=== PATIENT | female | born 1950 | race Caucasian/White ===

== ENCOUNTER 2018-09-23 10:23 | Inpatient (IN) ==
--- NOTE | 2018-09-23 11:04 | Diag Imaging Result Doc PS360 ---
CHEST-2 VIEWS - 09/23/2018 INDICATION: sob copd COMPARISON: 08/26/2018 FINDINGS: The lungs are normally expanded and clear. Heart size and mediastinal contours are normal. No pneumothorax or pleural effusion. IMPRESSION: Negative exam. Electronically signed by Jonnathan Chávez 09/23/2018 11:01 AM
[2018-09-23 11:17] LABS: BASO# 0.01 X1000 (0.0-0.2); BASO% 0.1 % (0.0-0.8); EOS# 0.14 X1000 (0.0-0.7); EOS% 1.3 % (0.0-10.0); HEMOGLOBIN 14.8 g/dL (12.0-16.0); IMM GRAN# 0.02 X1000 (0.0-0.04); IMM GRAN% 0.2 % (0.0-0.5); LYMPH# 1.81 X1000 (1.2-3.4); LYMPH% 16.4 % (20.5-51.1); MCH 29.5 PG (27-31); MCHC 31.5 g/dL (33-37); MCV 93.6 FL (81-99); MONO# 0.78 X1000 (0.11-0.59); MONO% 7.1 % (1.7-9.3); MPV 11.5 FL (7.4-10.4); NEUT# 8.27 X1000 (1.4-6.5); NEUT% 74.9 % (42.2-75.2); PLT 190 X1000 (130-400); RBC 5.02 XMIL (4.2-5.4); RDW 12.1 % (11.5-14.5); WBC 11.03 X1000 (4.8-10.8)
[2018-09-23] MEDS ORDERED: DUONEB (A & A) INH ONE ×2 (11:19→15:39)
[2018-09-23] MEDS ORDERED: MAGNESIUM SULFATE 1 GM/D5W 1 GM/100 ML IVPB IV ONE (11:20)
[2018-09-23] MEDS ORDERED: SOLU-MEDROL IV ONE (11:20)
[2018-09-23] MEDS ORDERED: LASIX IV ONE (11:21)
[2018-09-23 11:42] LABS: ALBUMIN 3.8 g/dL (3.5-5.0); CALCIUM 9.1 mg/dL (8.8-10.2); POTASSIUM 4.2 mmol/L (3.5-5.1); TOTAL BILIRUBIN 0.2 mg/dL (0.20-1.00); TOTAL PROTEIN 6.8 g/dL (6.3-8.3)
[2018-09-23 11:48] LABS: BILIRUBIN URINE NEGATIVE (NEGATIVE); BLOOD URINE NEGATIVE (NEGATIVE); CLARITY CLEAR (CLEAR); COLOR YELLOW; GLUCOSE URINE NEGATIVE (NEGATIVE); KETONE URINE NEGATIVE (NEGATIVE); LEUKOCYTES URINE NEGATIVE (NEGATIVE); NITRITE URINE NEGATIVE (NEGATIVE); PROTEIN URINE TRACE mg/dL (NEGATIVE); SP GRAVITY URINE 1.005; UROBILINOGEN URINE NORMAL
[2018-09-23 11:50] LABS: URINE EPITHELIAL CELLS <10 /HPF (<10); URINE RBC <10 /HPF (<10); URINE SOURCE CLEAN CATCH
--- NOTE | 2018-09-23 13:36 | Diag Imaging Result Doc PS360 ---
CT ANGIOGRM PULMONARY ARTERIES - 09/23/2018 INDICATION: dyspnea elevated ddimer TECHNIQUE: Axial CT images were obtained after administering intravenous contrast. Coronal MIP images were generated. COMPARISON: None FINDINGS: There is no pulmonary embolism. Heart size is normal with no pericardial effusion. There is moderately advanced, triple-vessel calcified coronary artery disease. No mass or adenopathy. 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 No masses in the upper abdomen. There is mild dependent atelectasis. No infiltrates in the lungs otherwise. There are moderate degenerative changes of the spine. No acute or suspicious bony lesion. IMPRESSION: No acute disease. This exam was performed using automated exposure control, adjustment of mA or kV according to patient size, and/or use of iterative reconstruction technique Electronically signed by Jonnathan Chávez 09/23/2018 1:34 PM
--- NOTE | 2018-09-23 14:15 | PROVIDER DOCUMENTATION ---
This chart was entered by Lyssa Worthy Scribe, acting as scribe for Hetal Valencia MD. HPI-Respiratory General - General Chief Complaint: Shortness of Breath Stated Complaint: SOB Time Seen by Provider: 09/23/18 10:39 Source: patient Allergies/Adverse Reactions: Patient Allergies Allergy/AdvReac Type Severity Reaction Status Date / Time doxycycline Allergy RASH Verified 03/14/18 05:56 latex Allergy RASH Verified 03/14/18 05:56 oxycodone HCl * Allergy ITCHING Verified 03/14/18 05:56 [From OxyContin] Sulfa (Sulfonamide Allergy RASH Verified 03/14/18 05:56 Antibiotics) naproxen [From Naprosyn] AdvReac NAUSEA/VOMI Verified 03/14/18 05:56 TING Home Medications: Home Medication List Medication Instructions Recorded Confirmed Last Taken Type Furosemide [Lasix] 40 mg PO DAILY PRN 04/26/15 03/14/18 2 Weeks Ago History ~02/28/18 Hydrocodone/APAP 10 mg/325 mg 1 each PO 4X04/26/15 03/14/18 03/14/18 03:00 History [Marydel-10] Omeprazole [Prilosec] 20 mg PO DAILY@0700 04/26/15 03/11/18 03/13/18 09:00 History Potassium Chloride 20 meq PO DAILY PRN PRN 04/26/15 03/14/18 1 Month Ago History ~02/12/18 Pregabalin [Lyrica] 175 mg PO BID 04/26/15 03/11/18 03/13/18 09:00 History ROSUVAstatin [Crestor] 10 mg PO QHS 04/26/15 03/14/18 03/12/18 21:00 History Acetaminophen [Tylenol] 1,000 mg PO Q4H PRN PRN 05/03/16 03/14/18 1 Month Ago History ~02/12/18 Albuterol Sulfate [Proair Hfa] 8.5 gm IH PRN PRN 05/03/16 03/14/18 03/13/18 21: 00 History Aspirin [Ecotrin] 325 mg PO DAILY 05/03/16 03/14/18 03/11/18 History Glimepiride [Amaryl] 2 mg PO DAILY 0803/11/18 03/13/18 09:00 History Hydromorphone [Dilaudid 1 mg/1 ml 0 mg .SEE ORDER DAILY 05/03/16 03/14/18 History syringe] Phentermine HCl [Adipex-P] 1 - 2 tab PO DAILY 05/03/16 03/11/18 03/13/18 09:00 History Sitagliptin Phos/Metformin HCl 1 each PO BID 05/03/16 03/11/18 03/13/18 09:00 History [Janumet 50-1,000 mg Tablet] Duloxetine [Cymbalta] 30 mg PO BID 03/11/18 03/11/18 03/13/18 09:00 History Furosemide [Lasix] 20 mg PO BID #60 tab 08/26/18 Unknown Rx Levofloxacin [Levaquin] 500 mg PO DAILY #7 tab 08/26/18 Unknown Rx - History of Present Illness-Resp Nature of Presenting Problem: Patient is a 67 year old female who presents to the ED via EMS with shortness of breath. Patient states she was seen in the ED last week for similar symptoms. Patient states history of COPD and CHF. Patient does not report chest pain. Patient denies using her inhaler. Patient states she is on 2 L of oxygen 01/04. Quality of Pain: reports: tightness Severity in ED: reports: mild Onset/Duration: reports: gradual Timing: reports: still present, getting worse Cough Quality/Degree: reports: no cough Current Respiratory Medication Therapy: Initiated see nurses note Modifying Factors: improves with: nothing Associated Symptoms: reports: shortness of breath Similar Symptoms Previously?: Yes Recently seen or treated by another doctor?: Yes Review of Systems - Adult - REVIEW OF SYSTEMS - ADULT Constitutional: reports: no symptoms reported Eyes: reports: no symptoms reported Ears, Nose, Mouth & Throat: reports: no symptoms reported Cardiovascular: reports: no symptoms reported Respiratory: reports: shortness of breath. denies: cough, wheezing Gastrointestinal: reports: no symptoms reported Genitourinary: reports: no symptoms reported Musculoskeletal: reports: no symptoms reported Integumentary: reports: no symptoms reported Neurological: reports: no symptoms reported Psychiatric: reports: no symptoms reported Endocrine: reports: no symptoms reported Hematologic/Lymphatic: reports: no symptoms reported Allergic/Immunologic: reports: no symptoms reported All Other Systems: Reviewed and Negative Past History - Adult - PAST MEDICAL HISTORY-ADULT Review of Records: reports: Nursing Assessment Review, Medications Reviewed, Social history reviewed & non-contributory. Major Childhood Illnesses: reports: denies history Cardiovascular: reports: CHF, HTN Respiratory: reports: asthma, COPD, sleep apnea Gastrointestinal: reports: denies history Obstetrical/Gynecological: reports: denies history Genitourinary: reports: denies history Musculoskeletal: reports: denies history Neurological: reports: denies history Psychiatric: reports: denies history Endocrine/Immune: reports: Diabetes Other Conditions: reports: cataract/glaucoma - PRIOR SURGERIES/PROCEDURES Surgical/Procedure History: reports: hysterectomy, other (toe) - IMMUNIZATION STATUS Childhood Immunizations: See Nurse Assessment Flu Vaccine: See Nurse Assessment - FAMILY HISTORY Family History: reviewed, not pertinent - SOCIAL HISTORY Smoking: cigarettes (former) Substance Use: denies Physical Exam-General - PHYSICAL EXAM-ADULT Initial Vital Signs Reviewed: Yes - CONSTITUTIONAL General Appearance: appears well, alert, no apparent distress - EYES Eyes: PERRL/EOMI, pink conjunctivae - HEAD, EARS, NOSE, MOUTH & THROAT HENMT: normocephalic/atraumatic, moist mucous membranes - NECK Neck: supple - RESPIRATORY Respiratory: chest non-tender, no pleuratic chest pain, no respiratory distress , no accessory muscle use (mild diffuse wheezing with mild decreased breath sounds) - CARDIOVASCULAR Cardiovascular: normal peripheral pulses, regular rate, rhythm, other ( bilateral chronic pitting edema with redness from superior to ankle to half way up lower leg, pt says this is normal for her x 5 years, LLE lateral/anterior aspect half dollar sized and oval superficial wound healing well, no discharge, less than 2 sec cap refill of lower foot) - GASTROINTESTINAL (ABDOMEN) Abdominal Exam: non tender, soft - LYMPHATIC Lymphatic: no adenopathy - MUSCULOSKELETAL Back Exam: normal inspection Peripheral Pulses: radial (R): 2+, radial (L): 2+ - SKIN Integumentary: warm/dry, other (see extremity note) - NEUROLOGIC Neurologic: branch manager trainee II-XII nml as tested, grossly normal, no motor/sensory deficits - PSYCHIATRIC Psych/Mental Status: normal mood/affect, normal thought content, normal thought process, oriented x 3 Progress - PLAN OF CARE/RESULTS Progress/Plan/Lab Results: Vital Signs - 8 hr 09/23/18 10:26 09/23/18 11:48 09/23/18 11:52 Temperature 97.0 F L Pulse Rate 91 H 79 83 Respiratory Rate 25 H 17 17 Blood Pressure 153/86 158/89 O2 Sat by Pulse Oximetry 97 100 09/23/18 12:45 09/23/18 13:44 Temperature Pulse Rate 82 89 Respiratory Rate 12 15 Blood Pressure 128/69 123/68 O2 Sat by Pulse Oximetry 96 97 Laboratory Results - last 24 hr 09/23/18 09/23/18 09/23/18 10:35 11:03 11:03 WBC 11.03 H RBC 5.02 Hgb 14.8 Hct 47.0 MCV 93.6 MCH 29.5 MCHC 31.5 L RDW Std Deviation 12.1 Plt Count 190 MPV 11.5 H Immature Gran % (Auto) 0.2 Neut % (Auto) 74.9 Lymph % (Auto) 16.4 L [place] % (Auto) 7.1 Eos % (Auto) 1.3 Baso % (Auto) 0.1 Immature Gran # (Auto) 0.02 Neut # (Auto) 8.27 H Lymph # (Auto) 1.81 [place] # (Auto) 0.78 H Eos # (Auto) 0.14 Baso # (Auto) 0.01 D-Dimer, Quantitative Sodium Potassium Chloride Carbon Dioxide Anion Gap BUN Creatinine Estimated GFR/1.73 m2 BUN/Creatinine Ratio Glucose Calculated Osmolality Calcium Total Bilirubin AST ALT Alkaline Phosphatase Creatine Kinase Troponin T < 0.010 Ykr-U-Knnuoshdsme Pept Total Protein Albumin Globulin Albumin/Globulin Ratio Urine Source CLEAN CATCH Urine Color YELLOW Urine Clarity CLEAR Urine pH 7.0 Ur Specific [place] 1.005 Urine Protein TRACE A Urine Ketones NEGATIVE Urine Blood NEGATIVE Urine Nitrite NEGATIVE Urine Bilirubin NEGATIVE Urine Urobilinogen NORMAL Urine Microscopic RBC <10 Urine WBC NEGATIVE Ur Epithelial Cells <10 Urine Glucose NEGATIVE 09/23/18 09/23/18 09/23/18 11:03 11:03 11:03 WBC RBC Hgb Hct MCV MCH MCHC RDW Std Deviation Plt Count MPV Immature Gran % (Auto) Neut % (Auto) Lymph % (Auto) [place] % (Auto) Eos % (Auto) Baso % (Auto) Immature Gran # (Auto) Neut # (Auto) Lymph # (Auto) [place] # (Auto) Eos # (Auto) Baso # (Auto) D-Dimer, Quantitative 1.18 H Sodium 143 Potassium 4.2 Chloride 97 L Carbon Dioxide 34 Anion Gap 11 BUN 21 Creatinine 1.0 H Estimated GFR/1.73 m2 56 BUN/Creatinine Ratio 21 Glucose 172 H Calculated Osmolality 292 Calcium 9.1 Total Bilirubin 0.20 AST 12 ALT 9 L Alkaline Phosphatase 69 Creatine Kinase 57 Troponin T Tlt-B-Negzpyfozlr Pept Total Protein 6.8 Albumin 3.8 Globulin 3.0 Albumin/Globulin Ratio 1.0 Urine Source Urine Color Urine Clarity Urine pH Ur Specific [place] Urine Protein Urine Ketones Urine Blood Urine Nitrite Urine Bilirubin Urine Urobilinogen Urine Microscopic RBC Urine WBC Ur Epithelial Cells Urine Glucose 09/23/18 11:03 WBC RBC Hgb Hct MCV MCH MCHC RDW Std Deviation Plt Count MPV Immature Gran % (Auto) Neut % (Auto) Lymph % (Auto) [place] % (Auto) Eos % (Auto) Baso % (Auto) Immature Gran # (Auto) Neut # (Auto) Lymph # (Auto) [place] # (Auto) Eos # (Auto) Baso # (Auto) D-Dimer, Quantitative Sodium Potassium Chloride Carbon Dioxide Anion Gap BUN Creatinine Estimated GFR/1.73 m2 BUN/Creatinine Ratio Glucose Calculated Osmolality Calcium Total Bilirubin AST ALT Alkaline Phosphatase Creatine Kinase Troponin T Wqo-O-Opfnfyyyort Pept 377 H Total Protein Albumin Globulin Albumin/Globulin Ratio Urine Source Urine Color Urine Clarity Urine pH Ur Specific [place] Urine Protein Urine Ketones Urine Blood Urine Nitrite Urine Bilirubin Urine Urobilinogen Urine Microscopic RBC Urine WBC Ur Epithelial Cells Urine Glucose Orders Category Date Time Status Cardiac Monitoring DIRECTED Care 09/23/18 10:34 Active Nursing- Obtain EKG once Care 09/23/18 10:34 Active Oxygen Therapy- ED Nursing DIRECTED Care 09/23/18 10:35 Active CHEST-2 VIEWS [RAD] Stat Exams 09/23/18 10:34 Completed CTA [CT ANGIOGRM PULMONARY ARTERIES] [CT] Stat Exams 09/23/18 12:21 Completed CBC WITH DIFF [HEME] Stat Lab 09/23/18 11:03 Completed CK PROFILE [SP CHEM] Stat Lab 09/23/18 11:03 Completed CMP [COMPREHENSIVE METABOLIC PANEL] [CHEM] Stat Lab 09/23/18 11:03 Completed D-DIMER [COAG] Stat Lab 09/23/18 11:03 Completed PRO B-NATRIURETIC PEPTIDE Stat Lab 09/23/18 11:03 Completed TROPONIN T Stat Lab 09/23/18 11:[address] W/POSS RFLX CULT [URINALYSIS] Stat Lab 09/23/18 10:35 Completed Albuterol 2.5MG/Ipratrop 0.5MG [Duoneb (A & A)] Med 09/23/18 11:19 Discontinued 3 ml INH NOW ONE Furosemide [Lasix] Med 09/23/18 11:21 Discontinued 20 mg IV NOW ONE Magnesium Sulfate 1 gm/D5w Med 09/23/18 11:20 Discontinued 1 gm in 100 ml IV NOW Methylprednisolone Sod Succ [Solu-Medrol] Med 09/23/18 11:20 Discontinued 80 mg IV NOW ONE Aerosol Treatments Routine Oth 09/23/18 11:19 Completed Aerosol Treatments Stat Oth 09/23/18 11:19 Completed EKG [EKG] Stat Ther 09/23/18 10:34 Ordered pt told she had CHF last visit to ED - sent home, already has DM, COPD O2 2 L BNC 01/04 at home, did take her pills this am, no breathing treatment this am, not working to breath at this time, but wheezing and tight on exam, will treat with duoneb, solumedrol and magnesium despite the lasix previously, the creatinine is only 0.1 above normal, ddimer is double, will review past records and order CTA chest if necessary, BNP is 377 which decreases the likelihood of chf influence today, suspect more COPD at this time CT neg for PE and pulmonary edema, COPD the cause today of dyspnea, after hour long, still wheezing, will admit, call out to hospitalist d/w Dr Romano [facility] [place] [place] condition results treatment, return visit, why needs admit , agreed to admit Result Diagrams: 09/23/18 11:03 09/23/18 11:03 - EKG 1 Time of EKG reading by physician:: 11:12 EKG Read and Signed by:: Hetal Valencia EKG Interpretation (*Must complete 3 of following elements*): Abnormal ( anterior infarct, age undetermined) Rate: 81 Rhythm: normal sinus rhythm Comments: minimal voltage criteria for LVH, may be normal variant - XRAY 1 XRAY Study: Chest Impression: See EMR Report (CHEST-2 VIEWS - 09/23/2018 INDICATION: sob copd COMPARISON: 08/26/2018 FINDINGS: The lungs are normally expanded and clear. Heart size and mediastinal contours are normal. No pneumothorax or pleural effusion. IMPRESSION: Negative exam. Electronically signed by Jonnathan Chávez 09/23/2018 11:01 AM 09/23/18 1101 Interpreting Physician: Jonnathan Chávez MD Dictated Date/Time: 09/23/18 1101 cc: Hetal Valencia MD;) - CT/MRI 1 CT Study: Angiogram Impression: See EMR Report ( CT ANGIOGRM PULMONARY ARTERIES - 09/23/2018 INDICATION: dyspnea elevated ddimer TECHNIQUE: Axial CT images were obtained after administering intravenous contrast. Coronal MIP images were generated. COMPARISON: None FINDINGS: There is no pulmonary embolism. Heart size is normal with no pericardial effusion. There is moderately advanced, triple- vessel calcified coronary artery disease. No mass or adenopathy. 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 No masses in the upper abdomen. There is mild dependent atelectasis. No infiltrates in the lungs otherwise. There are moderate degenerative changes of the spine. No acute or suspicious bony lesion. IMPRESSION: No acute disease. This exam was performed using automated exposure control, adjustment of mA or kV according to patient size, and/or use of iterative reconstruction technique Electronically signed by Jonnathan Chávez 09/23/2018 1:34 PM 09/23/18 1334 Interpreting Physician: Jonnathan Chávez MD Dictated Date/Time: 09/23/18 1333 cc: Hetal Valencia MD; None,PCP) Departure - Departure Date of Disposition Decision: 09/23/18 Time of Disposition Decision: 14:13 DIAGNOSIS: COPD (chronic obstructive pulmonary disease), COPD exacerbation Disposition: ADMITTED INPATIENT 09 Certified Medical Emergency: Emergent Condition: Stable Referrals and Follow-Ups: None,PCP [Primary Care Provider] - Blayne Romano MD [ACTIVE STAFF PHYSICIAN] - - Critical Care Note This patient required my direct & personal management of CC.: No Attestation - Physician/ YASH Attestation The physician spent face to face time with patient:: Yes Advanced Practice Provider documentation review:: Supervising physician onsite and consulted in the evaluation and care of this patient. The physician did have a face to face encounter with the patient. This chart was documented by the indicated scribe, (Deacon,Lyssa, Scribe) and accurately reflects the services I performed and decisions made by me, Hetal Valencia MD, as attested by the provider's signature.
--- NOTE | 2018-09-23 17:12 | EKG Report ---
Test Performed on : 09/23/2018 11:12:05 AM Test Reason : sob copd Blood Pressure : / mmHG Vent. Rate : 081 BPM Atrial Rate : 081 BPM P-R Int : 158 ms QRS Dur : 084 ms QT Int : 394 ms P-R-T Axes : 068 001 043 degrees QTc Int : 457 ms Normal sinus rhythm. Minimal voltage criteria for LVH, may be normal variant Anterior infarct (cited on or before 11-MAR-2018) Abnormal ECG When compared with ECG of 11-MAR-2018 13:28, No significant change was found Unconfirmed Result
[2018-09-23] MEDS ORDERED: DUONEB (A & A) INH PRN (17:16)
[2018-09-23] MEDS ORDERED: ZOFRAN IV PRN (17:16)
[2018-09-23] MEDS ORDERED: SALINE LOCK IV FLUID XX ONE (17:16)
[2018-09-23] MEDS ORDERED: TYLENOL PO PRN (19:18)
[2018-09-23] MEDS: LOVENOX SUBQ SCH (19:49)
[2018-09-23 22:57] LABS: BILIRUBIN URINE NEGATIVE (NEGATIVE); BLOOD URINE TRACE (NEGATIVE); CLARITY CLEAR (CLEAR); COLOR YELLOW; KETONE URINE NEGATIVE (NEGATIVE); LEUKOCYTES URINE TRACE (NEGATIVE); NITRITE URINE NEGATIVE (NEGATIVE); PROTEIN URINE 2+(100 mg/dL) mg/dL (NEGATIVE); SP GRAVITY URINE 1.015; UROBILINOGEN URINE NORMAL
[2018-09-23 23:00] LABS: URINE BACTERIA 3+ /HFP; URINE EPITHELIAL CELLS <10 /HPF (<10); URINE RBC <10 /HPF (<10); URINE WBC <10 /HPF (<10)
[2018-09-23 23:01] LABS: URINE SOURCE CLEAN CATCH
[2018-09-23] MEDS: SOLU-MEDROL IV SCH (23:05)
[2018-09-23] MEDS: CYMBALTA PO SCH (23:05)
[2018-09-23] MEDS: GLUCOPHAGE PO SCH (23:06)
[2018-09-23] MEDS: HUMULIN R (PARKWAY) SUBQ SCH (23:06)
[2018-09-23] MEDS: JANUVIA PO SCH (23:06)
[2018-09-23] MEDS: LASIX PO SCH (23:06)
[2018-09-23] MEDS: CRESTOR PO SCH (23:08)
[2018-09-23] MEDS: NORCO-10 PO PRN (23:08)
[2018-09-24] MEDS: DUONEB (A & A) INH SCH ×5 (03:49→21:00)
[2018-09-24] MEDS: SOLU-MEDROL IV SCH ×3 (04:57→21:48)
[2018-09-24] MEDS: HUMULIN R (PARKWAY) SUBQ SCH ×4 (06:16→21:46)
[2018-09-24] MEDS: PROTONIX PO SCH (06:16)
[2018-09-24] MEDS ORDERED: PRILOSEC PO PRN (07:00)
[2018-09-24 08:00] LABS: HEMOGLOBIN A1C 8.3 % (4.8-6.0)
[2018-09-24 08:05] LABS: AGAP 12; BUN 32 mg/dL (8-22); CALCIUM 9.1 mg/dL (8.8-10.2); CHLORIDE 95 mmol/L (98-107); COSMO 292; CREATININE 0.8 mg/dL (0.5-0.9); ESTIMATED GFR > 60; GLUCOSE 230 mg/dL (70-104); HEMOGLOBIN 14.3 g/dL (12.0-16.0); IMM GRAN# 0.02 X1000 (0.0-0.04); IMM GRAN% 0.2 % (0.0-0.5); LYMPH# 1.01 X1000 (1.2-3.4); LYMPH% 10.4 % (20.5-51.1); MCH 29.5 PG (27-31); MCHC 31.8 g/dL (33-37); MCV 92.8 FL (81-99); MONO# 0.12 X1000 (0.11-0.59); MONO% 1.2 % (1.7-9.3); MPV 11.6 FL (7.4-10.4); NEUT# 8.56 X1000 (1.4-6.5); NEUT% 88.2 % (42.2-75.2); PLT 192 X1000 (130-400); POTASSIUM 4.8 mmol/L (3.5-5.1); RBC 4.85 XMIL (4.2-5.4); SODIUM 139 mmol/L (136-145); TCO2 32 mmol/L (25-35); WBC 9.71 X1000 (4.8-10.8)
[2018-09-24 09:03] LABS: LYMPHS 12 % (21-51); MONO 3 % (1-9); SEGS 85 % (42-75)
[2018-09-24] MEDS: CYMBALTA PO SCH ×2 (09:16→21:45)
[2018-09-24] MEDS: ASPIRIN EC PO SCH (09:16)
[2018-09-24] MEDS: LYRICA PO SCH ×3 (09:16→18:15)
[2018-09-24] MEDS: JANUVIA PO SCH ×2 (09:17→21:46)
[2018-09-24] MEDS: LASIX PO SCH ×2 (09:17→21:45)
[2018-09-24] MEDS: GLUCOPHAGE PO SCH ×2 (09:17→21:46)
[2018-09-24] MEDS: LOVENOX SUBQ SCH (18:15)
[2018-09-24] MEDS: NORCO-10 PO PRN (21:45)
[2018-09-24] MEDS: CRESTOR PO SCH (21:46)
[2018-09-25] MEDS: DUONEB (A & A) INH SCH ×4 (03:06→22:33)
[2018-09-25] MEDS: SOLU-MEDROL IV SCH ×2 (04:30→13:31)
--- NOTE | 2018-09-25 06:00 | PROGRESS NOTE ---
DATE: 09/24/2018 SUBJECTIVE: The patient has no major complaints. Her breathing has improved. OBJECTIVE: Vital signs: Blood pressure is 118/52, heart rate of 104, respiratory rate 18, temperature 97.7 degrees, and O2 sat is 92% on 2 L. Cardiovascular: Regular rate and rhythm. Pulmonary: I do not hear any wheezing. No rales. GI: Soft, nontender, nondistended. Bowel sounds were positive. LABORATORY DATA: White count is 9, hemoglobin and hematocrit 14 and 45, platelets 192,000. Basic was okay. PROBLEM LIST: 1. Acute chronic obstructive pulmonary disease exacerbation. We are going to wean steroids today and follow. 2. Diabetes. Will monitor on her current Januvia and metformin and follow closely. 3. She has a small toe ulcer. We will get a wound care consult. She has seen Dr. Nix. We will try to get him to reevaluate her because she has had amputations previously, and I am going to get Dopplers. She may need an arterial study if Dopplers are negative. 4. Disposition. Patient is improving. I think we probably could get her home soon. She probably needs to be set up with a foot and ankle surgeon. Since she is a Medicaid patient, that will have to be Dr. Burger. I would recommend outpatient pulmonary function tests, and she has already stopped smoking. cc: Keith Romano MD
[2018-09-25] MEDS: PROTONIX PO SCH (06:29)
[2018-09-25] MEDS: HUMULIN R (PARKWAY) SUBQ SCH ×4 (06:29→21:36)
--- NOTE | 2018-09-25 07:06 | HISTORY AND PHYSICAL ---
CHIEF COMPLAINT: Shortness of breath. HISTORY OF PRESENT ILLNESS: This is a 67-year-old female diagnosed with COPD and heart disease presenting with shortness of breath. Per family, this is about the third admission since Thanksgiving for kind of shortness of breath episodes. Her workup in the ER revealed significant wheezing, and she was treated for that. The patient has had productive cough and just general shortness of breath with a sensation of drowning. She has had PVD and diabetic foot ulcers previously. In any case, she was admitted for COPD exacerbation. PAST MEDICAL HISTORY: 1. CAD. 2. Diabetes number. 3. Hypertension. 4. Dyslipidemia. 5. GERD. 6. DVT. 7. Chronic renal insufficiency, varicose veins. 8. Chronic pain syndrome. PAST SURGICAL HISTORY: She has had an appendectomy, first and second toe amputations, pain pump insertion, hysterectomy, bilateral tubal ligation, saphenous vein ablation, breast biopsy. SOCIAL HISTORY: No tobacco. No alcohol. She has smoked for about 25-pack years. She quit last month. She says she has smoked for about 40 years, which I can believe. Lives with granddaughter and boyfriend. REVIEW OF SYSTEMS: Chest pain or other process. ALLERGIES: Naprosyn, OxyContin, sulfa, ibuprofen, latex, and doxycycline. HOME MEDICATIONS: She is on Crestor 10, Tylenol, ProAir, aspirin, Cymbalta 30 b.i.d., Diflucan 150 b.i.d., fluticasone, Lasix 80 b.i.d., Amaryl p.r.n., Percocet as needed, Prilosec 20 daily, Adipex, potassium 20 daily, Lyrica 100 t.i.d., Januvia/metformin b.i.d. PHYSICAL EXAM: VITAL SIGNS: Blood pressure was 119/58, heart rate of 86, respiratory rate 20, temperature 97.7 degrees, 98% on 2 L. GENERAL: She does not have any breathing difficulties. I did not appreciate any wheezes. CARDIOVASCULAR: Regular rate and rhythm. EYES: Pupils equal, round, reactive to light. Sclerae are anicteric. EAR/NOSE/THROAT: She had moist mucous membranes. NECK: Supple. PULMONARY: No wheezes. GI: Was soft, nontender, nondistended. Bowel sounds are positive. EXTREMITY: No clubbing or cyanosis. On extremity exam, she did have some erythema. She had a superficial area of denudation on the left leg which was dry. LYMPHATIC: No peripheral edema. NEUROLOGICAL: Nonfocal. LABORATORY STUDIES: White count is 11, hemoglobin and hematocrit 14 and 47, platelets 190,000. D- dimer 1.18. Basic was normal. Sugar 388. Chest x-ray was negative. CTA was negative. ASSESSMENT: This 67-year-old female with history of shortness of breath, who presents with worsening shortness of breath and presumably due to chronic obstructive pulmonary disease exacerbation. PROBLEM LIST: 1. Acute chronic obstructive pulmonary disease exacerbation. Will continue breathing treatments, nebulizers, steroids, and we will follow closely. 2. Diabetes. We will continue to monitor blood sugars, sliding scale insulin, and monitor closely. Check an A1c as well. 3. Coronary artery disease. She has known coronary artery disease history. I cannot see that we have done an echo recently, so, we are going to go ahead and put in for that. But it is not clear if she has significant pulmonary edema either, so we will monitor. She is on 80 b.i.d. So we are going to just keep her on her regular medications. DISPOSITION: Pending her clinical status, will probably be here 1 or 2 days depending on how she does. This is a patient of Callie Lopes. cc: Keith Romano MD
[2018-09-25 08:37] LABS: HEMATOCRIT 44.7 % (37.0-47.0); HEMOGLOBIN 14.2 g/dL (12.0-16.0); IMM GRAN# 0.03 X1000 (0.0-0.04); IMM GRAN% 0.2 % (0.0-0.5); LYMPH# 0.72 X1000 (1.2-3.4); LYMPH% 5.2 % (20.5-51.1); MCH 29.6 PG (27-31); MCHC 31.8 g/dL (33-37); MCV 93.3 FL (81-99); MONO# 0.29 X1000 (0.11-0.59); MONO% 2.1 % (1.7-9.3); NEUT# 12.82 X1000 (1.4-6.5); NEUT% 92.5 % (42.2-75.2); PLT 183 X1000 (130-400); RBC 4.79 XMIL (4.2-5.4); RDW 12.2 % (11.5-14.5); WBC 13.86 X1000 (4.8-10.8)
[2018-09-25] MEDS: CYMBALTA PO SCH ×2 (08:38→21:22)
[2018-09-25] MEDS: LASIX PO SCH (08:39)
[2018-09-25] MEDS: ASPIRIN EC PO SCH (08:39)
[2018-09-25] MEDS: TYLENOL PO PRN (08:39)
[2018-09-25] MEDS: LYRICA PO SCH ×3 (08:39→17:41)
[2018-09-25] MEDS: JANUVIA PO SCH ×2 (08:39→21:21)
[2018-09-25] MEDS: GLUCOPHAGE PO SCH ×3 (08:55→21:26)
[2018-09-25 08:57] LABS: CALCIUM 9.2 mg/dL (8.8-10.2); CREATININE 1.1 mg/dL (0.5-0.9); POTASSIUM 4.6 mmol/L (3.5-5.1)
[2018-09-25 09:44] LABS: ANISOCYTOSIS 1+; LYMPHS 5 % (21-51); MONO 2 % (1-9); SEGS 93 % (42-75)
--- NOTE | 2018-09-25 11:57 | Extremity Venous Study ---
EXAM: Venous U/S Bilateral Legs 09/25/2018 HISTORY: swelling TECHNIQUE: Bilateral venous ultrasound of the lower extremities COMMENT: The deep veins of both lower extremities are compressible and demonstrate normal color Doppler flow with augmentation. IMPRESSION: No evidence of deep venous thrombosis. Electronically signed by Jay Hui 09/25/2018 11:54 AM
[2018-09-25] MEDS: ZOSYN 3.375 GM in NS 50 ML IV SCH (17:41)
[2018-09-25] MEDS: LOVENOX SUBQ SCH (17:41)
[2018-09-25] MEDS: ZYVOX 600 MG/D5W 600 MG/300 ML IVPB IV SCH (19:52)
[2018-09-25] MEDS: CRESTOR PO SCH (21:22)
[2018-09-25] MEDS: NORCO-10 PO PRN (21:22)
--- NOTE | 2018-09-25 23:59 | ECHO REPORT ---
ORDER DATE: 09/25/2018 MEASUREMENTS: Left ventricular end diastolic diameter 4.9, end systolic diameter 3.2, septal thickness 1.0, posterior wall thickness 1.0, aortic root 3.2, left atrium 4.1. SUMMARY: 1. Adequate quality study. 2. Aortic valve is without evidence of structural abnormality and opens adequately on 2- dimensional images. Peak gradient across the aortic valve is 10 to 15 mmHg. Mitral, tricuspid, and pulmonic valves are without evidence of structural abnormality with trace tricuspid regurgitation. The aortic root is normal in size. 3. Normal left ventricular dimensions demonstrated. Estimated left ventricular ejection fraction appears to be at least 60%. No regional wall motion abnormalities are evident. The left atrium is mildly enlarged. The right atrium and right ventricle are normal size with normal right ventricular systolic function. 4. No pericardial effusion. 5. Appearance of inferior vena cava suggests normal central venous pressure. CONCLUSIONS: 1. No significant valvular abnormality. 2. Normal left ventricular systolic function without regional wall motion abnormality evident. 3. Mild left atrial enlargement. cc: MD Keith Phelps MD
[2018-09-26] MEDS: SOLU-MEDROL IV SCH ×2 (00:34→12:44)
[2018-09-26] MEDS: ZOSYN 3.375 GM in NS 50 ML IV SCH ×4 (00:34→18:19)
[2018-09-26] MEDS: DUONEB (A & A) INH SCH ×4 (03:17→22:35)
--- NOTE | 2018-09-26 03:49 | PROGRESS NOTE ---
DATE: 09/25/2018 SUBJECTIVE: As per the patient, she is feeling better. She does have chronic obstructive pulmonary disease on home O2 around 2 L. D-dimer was elevated at 1.18, but no PE or DVT has been shown by the images. This patient does not have a fpga engineer, and her primary doctor is Dr. Lopes. She used to be a heavy smoker. She smoked for around 45 years one pack a day, and she stopped smoking a month ago. She has diabetes which is uncontrolled with a hemoglobin A1c of 8.3, coronary artery disease with a calculated ejection fraction of around 59% in 2016 with mild concentric hypertrophy, and we have requested a new one. She has been on steroids which I will decreased from 40 IV q.8 hours to 40 IV q.12 hours and probably tomorrow we will decrease it even more since this patient is getting better. OBJECTIVE: Vital Signs: Temperature 97.7 degrees, pulse 90, respiratory rate 20, blood pressure 116/54, and oxygen saturation 92 on 2 L of nasal cannula. HEENT: Head normocephalic. No trauma. PERRLA. Neck: Supple. No JVD. No masses. Central trachea. Chest: Decreased breath sounds globally with prolonged expiratory phase, and some rales at the bases probably some crackles as well. Abdomen: Soft, nontender, and nondistended. No hepatosplenomegaly. Extremities: 1 to 2+ lower extremity edema. No clubbing. No cyanosis. She does have chronic venous stasis with some wounds that apparently are healing well bilaterally. The skin is red, probably she has some cellulitis but as per the patient she has had this problem for around 5 years. I will put this patient on antibiotics anyway. ASSESSMENT AND PLAN: 1. Hypoxemic respiratory failure likely secondary to chronic obstructive pulmonary disease exacerbation. I am weaning the steroids today. I added antibiotics to this patient to cover both lungs and a possible lower extremity cellulitis. Continue breathing treatment and oxygen supplementation. This patient has home oxygen as well. 2. Type 2 diabetes uncontrolled. Continue with the same management. Since I have decreased the dose of the steroids, probably the blood sugar is going to decrease as well. 3. History of coronary artery disease. Aware. I am not quite sure why she has been placed on furosemide 80 twice a day, but I will decrease it to 40 IV daily. I will monitor. The kidney dysfunction seems to be going up. 4. Bilateral lower extremity cellulitis with multiple ulcers, likely secondary to venous stasis and multiple wound lesions. I have placed this patient on antibiotics. As per the patient, she has been having these chronic problems, but the left leg looks worse. She has some redness and also is warm to palpation. cc: MD Keith Mena MD MTDTiago
[2018-09-26] MEDS: HUMULIN R (PARKWAY) SUBQ SCH ×4 (06:09→21:16)
[2018-09-26] MEDS: PROTONIX PO SCH (06:09)
[2018-09-26 08:16] LABS: CALCIUM 8.7 mg/dL (8.8-10.2); CREATININE 1.2 mg/dL (0.5-0.9); POTASSIUM 4.5 mmol/L (3.5-5.1)
[2018-09-26] MEDS: ZYVOX 600 MG/D5W 600 MG/300 ML IVPB IV SCH ×2 (08:16→20:32)
[2018-09-26] MEDS: CYMBALTA PO SCH ×2 (08:16→20:32)
[2018-09-26] MEDS: JANUVIA PO SCH ×2 (08:16→20:32)
[2018-09-26] MEDS: LYRICA PO SCH ×3 (08:17→16:38)
[2018-09-26] MEDS: GLUCOPHAGE PO SCH ×2 (08:17→20:32)
[2018-09-26] MEDS: ASPIRIN EC PO SCH (08:17)
[2018-09-26 08:19] LABS: HEMATOCRIT 44.6 % (37.0-47.0); HEMOGLOBIN 14.1 g/dL (12.0-16.0); IMM GRAN# 0.07 X1000 (0.0-0.04); IMM GRAN% 0.6 % (0.0-0.5); LYMPH# 0.71 X1000 (1.2-3.4); LYMPH% 5.6 % (20.5-51.1); MCH 29.7 PG (27-31); MCHC 31.6 g/dL (33-37); MCV 93.9 FL (81-99); MONO# 0.35 X1000 (0.11-0.59); MONO% 2.8 % (1.7-9.3); MPV 11.9 FL (7.4-10.4); NEUT# 11.58 X1000 (1.4-6.5); PLT 160 X1000 (130-400); RBC 4.75 XMIL (4.2-5.4); RDW 12.2 % (11.5-14.5); WBC 12.71 X1000 (4.8-10.8)
[2018-09-26] MEDS: NORCO-10 PO PRN (08:20)
[2018-09-26] MEDS ORDERED: LASIX IV SCH (09:00)
[2018-09-26 09:15] LABS: LYMPHS 8 % (21-51); MONO 1 % (1-9); SEGS 91 % (42-75)
[2018-09-26] MEDS ORDERED: DIFLUCAN 100 MG/NS 100 MG/50 ML IVPB IV SCH (09:15)
[2018-09-26] MEDS: LOVENOX SUBQ SCH (18:19)
[2018-09-26] MEDS ORDERED: FLU VACCINE IM ONE (18:58)
[2018-09-26] MEDS: CRESTOR PO SCH (20:32)
--- NOTE | 2018-09-27 00:36 | PROGRESS NOTE ---
DATE: 09/26/2018 SUBJECTIVE: This patient is feeling better. She has COPD, on home O2, around 2 L. D-dimer was elevated, but no pulmonary embolism or DVT has been shown by images. This patient does not have a butter wrapper. Her primary doctor is Dr. Lopes. She used to be a heavy smoker. She smoked around 45 years, and around 1 pack a day. She stopped smoking a month ago. She has diabetes, which is uncontrolled. Hemoglobin A1c is 8.3, coronary artery disease, and an ejection fraction of 59 in 2016, with mild concentric hypertrophy, but the new echocardiogram showed left ventricular ejection fraction to be at least 60%, with no regional wall motion abnormalities. She is still getting steroids, which I will decrease from 40 IV every 12 hours to 40 daily, since she is getting much better. Also, this patient has lower extremity cellulitis. Continue with same management. OBJECTIVE: Vital Signs: Temperature 97.6 degrees, pulse 84, respiratory rate 20, blood pressure 132/68, oxygen saturation 93 on 2 L of nasal cannula. HEENT: Head normocephalic. No trauma. PERRLA. Neck: Supple. No JVD. No masses. Central trachea. Chest: Decreased breath sounds globally, with prolonged expiratory phase. Some rales at the bases, and probably some crackles. Faint end-expiratory wheezing. Abdomen: Soft, nontender, nondistended. No hepatosplenomegaly. Extremities: 1+ lower extremity edema. No clubbing, no cyanosis. She does have a chronic venous stasis, with some wounds that are healing well bilaterally. The skin is red, warm. It looks like she has been having this problem for 5 years, but for me looks infected. LABORATORY STUDIES: WBC 12.7, hemoglobin 14.1, hematocrit 44.6, platelets 160,000. Sodium 139, potassium 4.5, chloride 95, bicarbonate 31, BUN 49, creatinine 1.2, glucose 283, calcium 8.7. ASSESSMENT AND PLAN: 1. Hypoxemic respiratory failure secondary to chronic obstructive pulmonary disease exacerbation. I have decreased the dose of the steroids, again, to 40 IV daily. She is on antibiotics. Continue breathing treatment, oxygen supplementation. This patient has home oxygen as well. 2. Type 2 diabetes, uncontrolled. Continue with the same management. Since I decreased the dose of the steroids, this probably is going to get much better. 3. History of coronary artery disease. Aware. It looks like this patient has been placed on 40 of Lasix twice a day at home, but she decided to use sometimes 80 of Lasix twice a day. I have stopped the Lasix today, and probably I will not continue this tomorrow, because she has a mild increase of the creatinine. 4. Mild acute kidney injury. I will stop the Lasix for now. I will restart the Lasix in the near future, once the kidney function is better. 5. Bilateral lower extremity cellulitis, with multiple ulcers. This is likely secondary to venous stasis and multiple wound lesions. Continue antibiotics. cc: Arnold Mackey MD
[2018-09-27] MEDS: ZOSYN 3.375 GM in NS 50 ML IV SCH ×4 (01:09→18:32)
[2018-09-27] MEDS: TYLENOL PO PRN ×2 (03:11→18:32)
[2018-09-27] MEDS: DUONEB (A & A) INH SCH ×4 (03:45→22:49)
[2018-09-27] MEDS: PROTONIX PO SCH (06:15)
[2018-09-27] MEDS: HUMULIN R (PARKWAY) SUBQ SCH ×4 (06:15→22:18)
[2018-09-27 08:08] LABS: EOS# 0.01 X1000 (0.0-0.7); EOS% 0.1 % (0.0-10.0); HEMATOCRIT 46.9 % (37.0-47.0); HEMOGLOBIN 14.8 g/dL (12.0-16.0); IMM GRAN# 0.06 X1000 (0.0-0.04); IMM GRAN% 0.5 % (0.0-0.5); LYMPH# 2.24 X1000 (1.2-3.4); LYMPH% 17.5 % (20.5-51.1); MCH 29.7 PG (27-31); MCHC 31.6 g/dL (33-37); MONO# 1.23 X1000 (0.11-0.59); MONO% 9.6 % (1.7-9.3); MPV 11.7 FL (7.4-10.4); NEUT# 9.29 X1000 (1.4-6.5); NEUT% 72.3 % (42.2-75.2); PLT 159 X1000 (130-400); RBC 4.99 XMIL (4.2-5.4); WBC 12.83 X1000 (4.8-10.8)
[2018-09-27 08:28] LABS: POTASSIUM 4.3 mmol/L (3.5-5.1)
[2018-09-27] MEDS: LYRICA PO SCH ×3 (08:40→18:31)
[2018-09-27] MEDS: ASPIRIN EC PO SCH (08:40)
[2018-09-27] MEDS: CYMBALTA PO SCH ×2 (08:40→22:18)
[2018-09-27] MEDS: JANUVIA PO SCH ×2 (08:40→21:20)
[2018-09-27] MEDS: ZYVOX 600 MG/D5W 600 MG/300 ML IVPB IV SCH ×2 (08:40→21:19)
[2018-09-27] MEDS: GLUCOPHAGE PO SCH ×2 (08:40→21:19)
[2018-09-27] MEDS ORDERED: SOLU-MEDROL IV SCH (09:00)
[2018-09-27] MEDS: DIFLUCAN 100 MG/NS 100 MG/50 ML IVPB IV SCH (12:24)
--- NOTE | 2018-09-27 13:32 | PROGRESS NOTE ---
DATE: 09/27/2018 Ms. Fowler is a 67-year-old white female who has been hospitalized with lower extremity swelling. It seems that she has venostasis changes of her lower extremities bilaterally with skin color changes, edema, and swelling. She also has an ulcer involving the bottom of her right great toe. Dr. Nix has followed her as an outpatient in the [facility] and after her discharge, I would get her rescheduled into that clinic with Dr. Nix for wound care. cc: MD Arnold Franklin MD
--- NOTE | 2018-09-27 15:08 | Diag Imaging Result Doc PS360 ---
EXAM: CT HEAD W/O CONTRAST INDICATION: fall TECHNIQUE: This exam was performed using automated exposure control, adjustment of mA or kV according to patient size, and/or use of iterative reconstruction technique. COMPARISON: None. FINDINGS: There is no definite acute infarct given the limited sensitivity of CT versus MRI. There is no discrete intracranial mass, mass effect, or intracranial hemorrhage. The surrounding soft tissues and bony structures are essentially unremarkable. IMPRESSION: No evidence of acute intracranial pathology. Electronically signed by Brooks Subramanian 09/27/2018 3:06 PM
--- NOTE | 2018-09-27 15:11 | Diag Imaging Result Doc PS360 ---
EXAM: XRAY PELVIS W/HIP 2-3VW LT INDICATION: fall TECHNIQUE: 3 views COMPARISON: None. FINDINGS: There is no discrete fracture, dislocation, or significant intrinsic osseous lesion. Hip joint spaces are preserved. The surrounding soft tissues are essentially unremarkable. IMPRESSION: No evidence of acute osseous abnormality. Electronically signed by Brooks Subramanian 09/27/2018 3:09 PM
--- NOTE | 2018-09-27 15:13 | Diag Imaging Result Doc PS360 ---
EXAM: KNEE 1-2 VIEWS-LEFT INDICATION: fall TECHNIQUE: 2 views COMPARISON: None. FINDINGS: There are tiny marginal osteophytes at the medial compartment. There is no discrete fracture, dislocation, or significant intrinsic osseous lesion, otherwise. The joint spaces are preserved. The surrounding soft tissues are essentially unremarkable. IMPRESSION: No evidence of acute osseous abnormality. Electronically signed by Brooks Subramanian 09/27/2018 3:11 PM
--- NOTE | 2018-09-27 15:17 | Diag Imaging Result Doc PS360 ---
EXAM: SHOULDER-LEFT INDICATION: fall TECHNIQUE: 3 views COMPARISON: None. FINDINGS: There is no discrete fracture, dislocation, or significant intrinsic osseous lesion. The visualized joint spaces are essentially unremarkable. The surrounding soft tissues are essentially unremarkable. IMPRESSION: No evidence of acute osseous abnormality. Electronically signed by Brooks Subramanian 09/27/2018 3:15 PM
[2018-09-27] MEDS: LOVENOX SUBQ SCH (18:32)
--- NOTE | 2018-09-27 18:38 | DISCHARGE SUMMARY ---
ADMISSION DATE: 09/23/2018 DISCHARGE DATE: 09/27/2018 DISCHARGE DIAGNOSES: 1. Hypoxemic respiratory failure secondary to chronic obstructive pulmonary disease exacerbation. 2. Type 2 diabetes. 3. History of coronary artery disease with normal ejection fraction. 4. Mild acute kidney injury, better. 5. Bilateral lower extremity cellulitis with small multiple ulcers. 6. Lower extremity venostasis. HOSPITAL COURSE: This is a 67-year-old female with a past medical history of COPD, coronary artery disease, diabetes, hypertension, GERD, DVT, varicose veins with venostasis, chronic pain, who presented to the emergency department with chief complaint of shortness of breath. Actually, she has been admitted multiple times for the same issue. But on admission, she was wheezing. She was coughing. She has also very severe peripheral vascular disease and diabetic foot ulcers previously. She has a chronic redness which seems to be worse and warm, probably she has bilateral lower extremity cellulitis which has been treated, and she will continue with treatment at home. She was admitted because of COPD exacerbation , and then we started treating the lower extremity cellulitis. As per the patient, she was recommended to take 40 of Lasix p.o. twice a day if she has lower extremity swelling. Apparently she has been taking 80 mg twice a day. She has mild acute kidney injury and will stop the furosemide for a couple of days. I told the patient to take 40 of Lasix daily only if she has bilateral lower extremity swelling but not on a daily basis. She needs to follow up with a primary care doctor. She is feeling much better. She is not wheezing. She is not short of breath. She is on home O2, and she needs to continue with that treatment. She will continue with steroids, antibiotics, breathing treatment, oxygen at home. We did a CT angiogram of the lung that did not show any clots or acute abnormality. As per the patient, she has a history of coronary artery disease, and I went ahead and asked for an echocardiogram that basically did not show any valvular abnormality. She has normal left ventricular systolic function without any wall motion abnormality, ejection fraction of 60%. This patient seems to be stable today. The lower extremity swelling is much better, and the redness is much better as well, and she is not short of breath, so we have decided to discharge this patient and will be followed up by her primary care doctor in 1 week. We will try to arrange an appointment for her to be seen by her surgeon at the [facility] as well this coming week. PHYSICAL EXAMINATION: VITAL SIGNS: Temperature is 97.7, pulse 77, respiratory rate 18, blood pressure 127/69, oxygen saturation 96% on 2 L of nasal cannula. HEENT: Head is normocephalic and nontraumatic. PERRL. NECK: Supple. No JVD. No masses. Central trachea. CHEST: Kyphosis. Decreased breath sounds globally with prolonged expiratory phase but no wheezing, no rales. ABDOMEN: Soft, nontender and nondistended. No hepatosplenomegaly. EXTREMITIES: Trace lower extremity edema. No clubbing or cyanosis. She has chronic venostasis with some wounds that are healing well bilaterally. 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 NEUROLOGICAL: This patient is completely alert and oriented x3. No focal deficits. DIAGNOSTIC DATA: WBC is 12.8, hemoglobin 14.8, hematocrit 46.9, platelets 459. Sodium is 142, potassium 4.3, chloride 94, bicarbonate 37, BUN is 45, creatinine 1, glucose 95 , calcium 9. DISCHARGE MEDICATIONS: 1. Medrol Dosepak as directed. 2. Clindamycin 300 mg p.o. every 8 hours. 3. Potassium chloride 20 mg p.o. daily as needed, usually when she uses the furosemide. 4. Omeprazole 20 mg p.o. daily. 5. Lyrica 100 mg p.o. 3 times a day. 6. Rosuvastatin 10 mg p.o. daily at bedtime. 7. Acetaminophen 500 mg p.o. every 4 hours as needed, she used to take 1000 mg every 4 hours as needed. 8. Aspirin 325 mg p.o. daily. 9. Glimepiride 2 mg p.o. daily as needed. 10.ProAir HFA 8.5 g inhalation as needed due to shortness of breath. 11.Cymbalta 30 mg p.o. twice a day. 12.Flonase 1 spray nasally daily as needed. 13.Janumet mg p.o. tablet twice a day. 14. Lasix 40 mg p.o. daily as needed. 15.[place] 10 one tablet p.o. twice a day as needed for pain. Time discharging this patient is 35 minutes. cc: Arnold Mackey MD MTDD
[2018-09-27] MEDS: CRESTOR PO SCH (21:19)
[2018-09-28] MEDS: ZOSYN 3.375 GM in NS 50 ML IV SCH ×4 (00:43→18:53)
[2018-09-28] MEDS: DUONEB (A & A) INH SCH ×4 (03:13→21:26)
[2018-09-28] MEDS: PROTONIX PO SCH (06:07)
[2018-09-28] MEDS: HUMULIN R (PARKWAY) SUBQ SCH ×4 (06:07→22:52)
[2018-09-28 06:34] LABS: EOS# 0.02 X1000 (0.0-0.7); EOS% 0.2 % (0.0-10.0); HEMOGLOBIN 14.8 g/dL (12.0-16.0); IMM GRAN# 0.04 X1000 (0.0-0.04); IMM GRAN% 0.3 % (0.0-0.5); LYMPH# 2.67 X1000 (1.2-3.4); LYMPH% 22.3 % (20.5-51.1); MCH 29.8 PG (27-31); MCHC 31.5 g/dL (33-37); MCV 94.8 FL (81-99); MONO# 1.12 X1000 (0.11-0.59); MONO% 9.4 % (1.7-9.3); MPV 11.6 FL (7.4-10.4); NEUT# 8.11 X1000 (1.4-6.5); NEUT% 67.8 % (42.2-75.2); PLT 173 X1000 (130-400); RBC 4.96 XMIL (4.2-5.4); RDW 12.1 % (11.5-14.5); WBC 11.96 X1000 (4.8-10.8)
[2018-09-28 06:51] LABS: ALBUMIN 3.6 g/dL (3.5-5.0); CALCIUM 9.3 mg/dL (8.8-10.2); CREATININE 1.1 mg/dL (0.5-0.9); POTASSIUM 4.3 mmol/L (3.5-5.1); TOTAL BILIRUBIN 0.5 mg/dL (0.20-1.00); TOTAL PROTEIN 6.2 g/dL (6.3-8.3)
[2018-09-28] MEDS: GLUCOPHAGE PO SCH ×2 (08:33→20:01)
[2018-09-28] MEDS: PREDNISONE PO SCH (08:33)
[2018-09-28] MEDS: ZYVOX 600 MG/D5W 600 MG/300 ML IVPB IV SCH ×2 (08:33→20:01)
[2018-09-28] MEDS: CYMBALTA PO SCH ×2 (08:33→20:01)
[2018-09-28] MEDS: ASPIRIN EC PO SCH (08:33)
[2018-09-28] MEDS: JANUVIA PO SCH ×2 (08:33→20:01)
[2018-09-28] MEDS: LYRICA PO SCH ×2 (08:34→12:07)
[2018-09-28] MEDS: DIFLUCAN 100 MG/NS 100 MG/50 ML IVPB IV SCH (11:51)
[2018-09-28] MEDS ORDERED: NS 1,000 ML ONE (12:11)
[2018-09-28] MEDS ORDERED: NS 500 ML IV ONE (12:29)
[2018-09-28] MEDS ORDERED: NS 1,000 ML IV ONE (12:31)
--- NOTE | 2018-09-28 13:02 | PROGRESS NOTE ---
DATE: 09/28/2018 SUBJECTIVE: The patient has no major complaints. She seems very groggy today, just very, very groggy. OBJECTIVE: Vital Signs: Blood pressure is 120/61, heart rate of 68, respiratory rate of 14, temperature 97.7 degrees. Orthostatics, though, revealed her blood pressure dropped from 125 sitting, supine 141, and then standing dropped down to 98, so she is orthostatic. Cardiovascular: Regular rate and rhythm. Pulmonary: Bilateral breath sounds. Clear to auscultation. GI: Soft, nontender, nondistended. Bowel sounds are positive. LABORATORY DATA: White count 11, H and H 14, 47, platelets 173. Sodium is 146. BUN and creatinine are 38 and 1.1. She had been BUN 54, creatinine 1.1. PROBLEM LIST: 1. Orthostatic hypotension. I am not quite sure why she is orthostatic, unless she has just not been taking enough fluids in. She does not appear to be septic. She is not on any antihypertensives now. She does have a Dilaudid pump which I am not sure if that may be contributing to it. We are going to hydrate her and see how she does. 2. Chronic obstructive pulmonary disease exacerbation. She is on breathing treatments and she is on antibiotics. Her chronic obstructive pulmonary disease seems to be doing like that now. She has been on Lasix twice a day, so I think some of the problem is that she has been over diuresed, but this is her home medication. chronic obstructive pulmonary disease exacerbation seems to be doing okay. She is on steroids and breathing treatments; that is pretty much resolved. 3. Acute kidney injury with orthostatic hypotension. We will give her some fluids and hold off. Her echocardiogram is normal, so I do not think she needs that much diuretic. I think she may be getting over diuresed based on her home dose, not on the doses we have been giving her here. 4. Cellulitis has overall improved with antibiotics. She is on Zyvox and another agent, Zosyn I think. We will keep her on those for the time being. I think Dr. Garcia had planned to discharge her on clindamycin, which I think is appropriate. So hopefully when we get her orthostatics regulated, she should be able to go home. cc: MD Arnold PalmaRadha, MD
[2018-09-28 14:37] LABS: BE 13.4 mmoll (-3.0-3.0); BLOOD TYPE ARTERIAL; HCO3-(ACT) 35.2 mmoll (20.0-26.0); METHB 0.9 % (0.0-1.5); O2(CT) 20.6 mL/dL (15.0-23.0); O2HB 91.2 % (95.0-99.0); PO2(98.6) 61 mmHg (60-100); SAMPLE BLOOD; SAO2 94.4 % (95.0-100.0); THB 16.1 g/dL (11.5-17.4); pH(98.6) 7.41 (7.35-7.45)
[2018-09-28 14:41] LABS: MODALITY CANNULA; PCO2(98.6) 66 mmHg (35-45)
[2018-09-28 14:44] LABS: ALLEN TEST YES
[2018-09-28] MEDS: LOVENOX SUBQ SCH (18:53)
[2018-09-28] MEDS: CRESTOR PO SCH (20:01)
[2018-09-28] MEDS: NORCO-10 PO PRN (21:42)
[2018-09-29] MEDS: ZOSYN 3.375 GM in NS 50 ML IV SCH ×3 (01:16→15:56)
[2018-09-29] MEDS: DUONEB (A & A) INH SCH ×4 (03:05→21:09)
[2018-09-29] MEDS: TYLENOL PO PRN (03:25)
[2018-09-29] MEDS: PROTONIX PO SCH (05:59)
[2018-09-29] MEDS: HUMULIN R (PARKWAY) SUBQ SCH ×4 (06:44→22:22)
[2018-09-29 07:41] LABS: BASO# 0.01 X1000 (0.0-0.2); BASO% 0.1 % (0.0-0.8); EOS# 0.06 X1000 (0.0-0.7); EOS% 0.5 % (0.0-10.0); HEMOGLOBIN 14.9 g/dL (12.0-16.0); IMM GRAN# 0.05 X1000 (0.0-0.04); IMM GRAN% 0.4 % (0.0-0.5); LYMPH# 2.79 X1000 (1.2-3.4); LYMPH% 22.1 % (20.5-51.1); MCH 29.8 PG (27-31); MCHC 31.7 g/dL (33-37); MONO# 0.88 X1000 (0.11-0.59); MPV 11.7 FL (7.4-10.4); NEUT# 8.81 X1000 (1.4-6.5); NEUT% 69.9 % (42.2-75.2); PLT 151 X1000 (130-400); RDW 11.9 % (11.5-14.5)
[2018-09-29 07:52] LABS: AGAP 10; BUN 27 mg/dL (8-22); CALCIUM 8.9 mg/dL (8.8-10.2); CHLORIDE 97 mmol/L (98-107); COSMO 288; CREATININE 0.9 mg/dL (0.5-0.9); ESTIMATED GFR > 60; GLUCOSE 100 mg/dL (70-104); POTASSIUM 3.7 mmol/L (3.5-5.1); SODIUM 142 mmol/L (136-145); TCO2 35 mmol/L (25-35)
[2018-09-29] MEDS: ASPIRIN EC PO SCH (10:57)
[2018-09-29] MEDS: CYMBALTA PO SCH ×3 (10:57→22:26)
[2018-09-29] MEDS: PREDNISONE PO SCH (10:57)
[2018-09-29] MEDS: JANUVIA PO SCH ×2 (10:57→22:23)
[2018-09-29] MEDS: GLUCOPHAGE PO SCH ×2 (10:57→22:23)
[2018-09-29] MEDS: DIFLUCAN PO SCH (10:57)
[2018-09-29] MEDS: ZYVOX 600 MG/D5W 600 MG/300 ML IVPB IV SCH (10:58)
--- NOTE | 2018-09-29 13:36 | PROGRESS NOTE ---
DATE: 09/29/2018 SUBJECTIVE: The patient feels very weak but denies having any other complaints. She states that she has not been able to walk. OBJECTIVE: Vital Signs: Temperature 97.9 degrees, pulse 68 per minute, respiratory rate 18 per minute, blood pressure 157/71, pulse oximetry 95% on 2 L of oxygen via nasal cannula. General: Patient is alert and oriented x3. She does appear to be very weak. Cardiovascular: First and second heart sounds are audible without any murmurs or gallops. Respiratory: No respiratory distress noted. Bilateral lung air entry is moderately decreased but there are no rales or rhonchi present on auscultation. Gastrointestinal: Abdomen is soft and nondistended. Normal bowel sounds are present. DIAGNOSTIC DATA: CBC shows WBC count of 12.60. Rest of the CBC is nondiagnostic. Her white blood cell counts have remained in the same range for the past 4 days. Basic metabolic panel is nondiagnostic. She did have elevated BUN that has now improved. IMPRESSION: 1. Chronic obstructive pulmonary disease exacerbation. 2. Leg cellulitis. 3. Orthostatic hypotension with generalized deconditioning. PLAN: The patient's acute chronic obstructive pulmonary disease exacerbation along with cellulitis of the legs have both improved. She still has generalized weakness, however. She also has orthostatic hypotension because of which her discharge was canceled 2 days ago. She was originally planning to be leaving the hospital, but the discharge was canceled and she has been continued on physical therapy. She will continue with Zyvox and Zosyn intravenously for her cellulitis legs and would continue with supportive care. I believe physical therapy is going to work on her and we will see if she can walk around after which she will be able to discharge home if possible in the next couple of days. cc: MD Arnold Rucker MD
[2018-09-29] MEDS: LOVENOX SUBQ SCH ×2 (15:54→18:53)
[2018-09-29] MEDS: NORCO-10 PO PRN (19:00)
[2018-09-29] MEDS: ZYVOX PO SCH (22:23)
[2018-09-29] MEDS: CRESTOR PO SCH (22:23)
[2018-09-30] MEDS: ZOSYN 3.375 GM in NS 50 ML IV SCH ×5 (00:30→21:34)
[2018-09-30] MEDS: DUONEB (A & A) INH SCH ×4 (03:36→22:49)
[2018-09-30] MEDS: HUMULIN R (PARKWAY) SUBQ SCH ×4 (06:18→21:35)
[2018-09-30] MEDS: PROTONIX PO SCH (06:19)
[2018-09-30 06:47] LABS: BASO# 0.01 X1000 (0.0-0.2); BASO% 0.1 % (0.0-0.8); EOS# 0.07 X1000 (0.0-0.7); EOS% 0.5 % (0.0-10.0); HEMATOCRIT 48.5 % (37.0-47.0); HEMOGLOBIN 15.7 g/dL (12.0-16.0); IMM GRAN# 0.06 X1000 (0.0-0.04); IMM GRAN% 0.4 % (0.0-0.5); LYMPH# 3.06 X1000 (1.2-3.4); LYMPH% 21.3 % (20.5-51.1); MCH 30.3 PG (27-31); MCHC 32.4 g/dL (33-37); MCV 93.4 FL (81-99); MONO# 1.07 X1000 (0.11-0.59); MONO% 7.4 % (1.7-9.3); MPV 11.8 FL (7.4-10.4); NEUT# 10.11 X1000 (1.4-6.5); NEUT% 70.3 % (42.2-75.2); PLT 173 X1000 (130-400); RBC 5.19 XMIL (4.2-5.4); RDW 11.9 % (11.5-14.5); WBC 14.38 X1000 (4.8-10.8)
--- NOTE | 2018-09-30 06:57 | Diag Imaging Result Doc PS360 ---
EXAM: CHEST-PORTABLE - 09/30/2018 HISTORY: COPD Exacerbation TECHNIQUE: Portable chest COMPARISON: 09/23/2018 FINDINGS: Heart size appears within normal limits. Inspiration is mildly shallow, with associated mild bilateral lower lung subsegmental atelectasis. The lungs otherwise appear clear. There is no pleural effusion or pneumothorax identified. IMPRESSION: Mildly shallow inspiration, with mild bilateral lower lung subsegmental atelectasis. No other acute changes. Electronically signed by Lisandro Dean 09/30/2018 6:55 AM
[2018-09-30 07:32] LABS: CALCIUM 9.4 mg/dL (8.8-10.2)
[2018-09-30] MEDS: JANUVIA PO SCH ×2 (10:44→20:26)
[2018-09-30] MEDS: CYMBALTA PO SCH ×3 (10:44→20:26)
[2018-09-30] MEDS: DIFLUCAN PO SCH (10:45)
[2018-09-30] MEDS: ZYVOX PO SCH ×2 (10:45→20:25)
[2018-09-30] MEDS: PREDNISONE PO SCH (10:45)
[2018-09-30] MEDS: ASPIRIN EC PO SCH (10:45)
[2018-09-30] MEDS: GLUCOPHAGE PO SCH ×2 (10:45→20:26)
[2018-09-30] MEDS: NORCO-10 PO PRN ×2 (10:52→20:25)
[2018-09-30] MEDS: DIFLUCAN 200 MG/NS 200 MG/100 ML IVPB IV SCH (18:12)
[2018-09-30] MEDS: LOVENOX SUBQ SCH (18:14)
--- NOTE | 2018-09-30 18:49 | PROGRESS NOTE ---
DATE: 09/30/2018 SUBJECTIVE: Patient reports feeling better. Cellulitis in both lower extremities continues to improve. She reports feeling a little bit weak but she does not want to go to rehab facility. OBJECTIVE: Vitals: Temperature 98.1 degrees, heart rate 78, respiratory 18, blood pressure 132/69, O2 saturation 95% 2 L nasal cannula. General: This is a 67-year-old female lying in bed in no acute distress. Cardiovascular: S1, S2 heard. No murmurs, gallops or rubs. Regular rate and rhythm. Respiratory: Clear bilaterally to auscultation. No work of breathing or using accessory muscles. Abdomen: Soft, nontender to palpation, bowel sounds present. No organomegaly. Extremities: No clubbing, cyanosis, edema. Peripheral pulses present in both legs. Neurological: Patient alert, oriented x3, moves 4 extremities. LABORATORY DATA: Reviewed. ASSESSMENT AND PLAN: 1. Chronic obstructive pulmonary disease exacerbation getting better. Will continue with breathing treatments. 2. Bilateral leg cellulitis, will continue with antibiotics in this case Zyvox and Zosyn and at discharge will switch to oral in this case Augmentin. 3. Orthostatic hypotension with generalized weakness. That condition is getting better. I think at this point because patient refused to go to rehab we are going to send her home with home health. 4. Severe vaginal candidiasis secondary to antibiotic use. We will start fluconazole 200 mg IV daily. Will continue to monitor. cc: Rashad Marinelli MD
[2018-09-30] MEDS: CRESTOR PO SCH (20:25)
[2018-10-01] MEDS: DUONEB (A & A) INH SCH ×3 (02:35→16:05)
[2018-10-01] MEDS: ZOSYN 3.375 GM in NS 50 ML IV SCH ×3 (04:14→17:05)
[2018-10-01] MEDS: PROTONIX PO SCH (06:24)
[2018-10-01] MEDS: HUMULIN R (PARKWAY) SUBQ SCH ×3 (06:24→17:04)
[2018-10-01 07:00] LABS: HEMATOCRIT 46.8 % (37.0-47.0); HEMOGLOBIN 14.6 g/dL (12.0-16.0); MCH 29.4 PG (27-31); MCHC 31.2 g/dL (33-37); MCV 94.2 FL (81-99); MPV 11.6 FL (7.4-10.4); RBC 4.97 XMIL (4.2-5.4); RDW 11.9 % (11.5-14.5); WBC 12.97 X1000 (4.8-10.8)
[2018-10-01 07:18] LABS: AGAP 9; BUN 21 mg/dL (8-22); CALCIUM 9.5 mg/dL (8.8-10.2); CHLORIDE 99 mmol/L (98-107); COSMO 287; CREATININE 0.9 mg/dL (0.5-0.9); ESTIMATED GFR > 60; GLUCOSE 111 mg/dL (70-104); POTASSIUM 4.3 mmol/L (3.5-5.1); SODIUM 142 mmol/L (136-145); TCO2 34 mmol/L (25-35)
[2018-10-01] MEDS: PREDNISONE PO SCH (10:38)
[2018-10-01] MEDS: GLUCOPHAGE PO SCH (10:38)
[2018-10-01] MEDS: ZYVOX PO SCH (10:38)
[2018-10-01] MEDS: ASPIRIN EC PO SCH (10:38)
[2018-10-01] MEDS: NORCO-10 PO PRN (10:38)
[2018-10-01] MEDS: CYMBALTA PO SCH (10:42)
[2018-10-01] MEDS: JANUVIA PO SCH (10:51)
[2018-10-01] MEDS ORDERED: MONISTAT 7 VAG SCH ×2 (11:30→21:00)
[2018-10-01 13:58] VITALS: BP 136/63
--- NOTE | 2018-10-01 15:31 | DISCHARGE SUMMARY ---
ADMISSION DATE: 09/23/2018 DISCHARGE DATE: DIAGNOSES: 1. Acute on chronic obstructive pulmonary disease exacerbation. 2. Bilateral lower leg cellulitis. 3. Orthostatic hypotension with generalized weakness. 4. Vaginal candidiasis secondary to antibiotic use. 5. Diabetes mellitus type 2. 6. History of coronary artery disease with normal ejection fraction. 7. Acute kidney injury, resolved. HOSPITAL COURSE: This is a 77-year-old female who presented to the emergency department with complaints of shortness of breath, having multiple admits for the same. She was found to have bilateral lower extremity cellulitis for which she was initially placed on Zyvox. She has improved For her COPD exacerbation, ,she was treated with steroids to taper and DuoNebs. Thankfully wheezing has resolved. She denies any shortness of breath. She is on home oxygen and we will continue that. With diuresis, her lower extremity edema has improved. The redness is much better. She is ready to be discharged home with home health. PHYSICAL EXAMINATION: Discharge vital signs: Blood pressure 119/70. Heart rate 90. Respirations 20. Temperature 98.1. O2 sat 95-99% on 2 liters nasal cannula. Cardiovascular: Regular rate and rhythm. S1 and S2 appreciated. She does have bilateral lower extremity edema which has improved. Pulmonary: She has decreased breath sounds throughout with a prolonged expiratory phase, but she has no wheezing, no rhonchi. She has no increased work of breathing. Gastrointestinal: Abdomen is soft, nontender, nondistended with bowel sounds in all 4 quadrants. Neurologic: She is alert and oriented x3. DIAGNOSTICS: 1. On 09/23/2018 CTA pulmonary revealed no acute disease, no infiltrates in the lungs. 2. Bilateral lower extremity Dopplers revealed no evidence of deep venous thrombosis. 3. CT of the head revealed no evidence of acute intracranial pathology. 4. Hip and pelvis x-ray revealed no evidence of acute osseous abnormality. 5. Left knee x-ray revealed no evidence of acute osseous abnormality. 6. Left shoulder x-ray revealed no evidence of acute osseous abnormality. 7. Urine culture revealed no pathogenic growth. 8. C. diff toxin was negative. DISCHARGE MEDICATIONS: 1. Crestor 10 mg p.o. q.h.s. 2. ProAir inhaler 1 puff p.r.n. wheezing. 3. Enteric coated aspirin 325 p.o. daily. 4. Cymbalta 30 mg p.o. b.i.d. 5. Flonase nose spray 1 spray each nostril daily. 6. Elavil 10 mg p.o. daily. 7. Prilosec 40 mg p.o. daily. 8. Potassium chloride 20 mEq p.o. daily. 9. Lyrica 100 mg p.o. t.i.d. 10. Clindamycin 300 mg p.o. q.8 hours. 11. Tylenol 500 mg p.o. q.4 hours p.r.n. pain. 12. Lasix 40 mg p.o. daily. She was instructed to only take the Lasix for lower extremity edema, these instructions were per Dr. Garcia. 13. [place] 10/325 b.i.d. p.r.n. pain. 14. Medrol Dosepak as directed. 15. Monistat 7 vaginal suppository to insert 1 at night for 7 nights. 16. Janumet one b.i.d. FOLLOW-UP: She is to follow-up with her primary care physician, Dr. Callie Lopes within a week. She is to call for an appointment. She will be followed by home health with [facility] from [place]. DISPOSITION: She is being discharged home in stable condition with family members. TIME SPENT: This is a greater than 30 minute discharge. Dictated by SHAWNA Grullon for Rashad Marinelli MD This chart was documented by, SHAWNA Grullon and accurately reflects the services performed, treatment plan and medical decisions as attested by the providers signature Rashad Marinelli MD. cc: SHAWNA Grullon MD Faye Wilson, MD [facility]
[2018-10-01] MEDS: DIFLUCAN 200 MG/NS 200 MG/100 ML IVPB IV SCH (17:04)
== END 2018-10-01 16:30 | disposition home health service (06) | DRG 190 ==
LOC: P.ED 10:23 → P.MEDSURG 17:03 → SUATTDRO 17:03
PROVIDERS: ATTEND Internal Medicine
CPT/HCPCS: 70450; 71010; 71020; 71045; 71046; 71275; 73030; 73502; 73560; 80048; 80053; 81001; 82550; 82805; 82948; 83036; 83735; 83880; 84484; 85025; 85027; 85379; 87088; 87324; 90686; 93005; 93306; 93970; 94640; 94761; 94799; 96365; 96375; 97163; 97530; 99285; A9270; J1450; J1650; J1815; J1940; J2020; J2543; J2920; J2930; J3475; J7030; J7040; J7506; J7512; Q9967; XXXXX

== ENCOUNTER 2018-12-26 22:26 | Inpatient (IN) ==
[2018-12-26] MEDS ORDERED: DUONEB (A & A) INH ONE (22:36)
[2018-12-26] MEDS ORDERED: SOLU-MEDROL IV ONE (22:36)
[2018-12-26] MEDS ORDERED: FIORICET PO ONE (22:36)
[2018-12-26 22:55] LABS: BASO# 0.01 X1000 (0.0-0.2); BASO% 0.1 % (0.0-0.8); EOS# 0.05 X1000 (0.0-0.7); EOS% 0.6 % (0.0-10.0); HEMATOCRIT 49.2 % (37.0-47.0); HEMOGLOBIN 15.2 g/dL (12.0-16.0); IMM GRAN# 0.02 X1000 (0.0-0.04); IMM GRAN% 0.2 % (0.0-0.5); LYMPH# 2.23 X1000 (1.2-3.4); LYMPH% 25.1 % (20.5-51.1); MCHC 30.9 g/dL (33-37); MCV 97.2 FL (81-99); MONO# 0.76 X1000 (0.11-0.59); MONO% 8.5 % (1.7-9.3); NEUT# 5.82 X1000 (1.4-6.5); NEUT% 65.5 % (42.2-75.2); PLT 264 X1000 (130-400); RBC 5.06 XMIL (4.2-5.4); RDW 12.8 % (11.5-14.5); WBC 8.89 X1000 (4.8-10.8)
[2018-12-26 23:21] LABS: AGAP 11; ALB/GLOB RATIO 1.3; ALKALINE PHOSPHATASE 73 U/L (32-104); BUN 17 mg/dL (8-22); CALCIUM 9.6 mg/dL (8.8-10.2); CHLORIDE 95 mmol/L (98-107); COSMO 290; CREATININE 1.1 mg/dL (0.5-0.9); ESTIMATED GFR 50; GLUCOSE 200 mg/dL (70-104); GOT 12 U/L (10-30); GPT 8 U/L (10-36); POTASSIUM 4.9 mmol/L (3.5-5.1); SODIUM 142 mmol/L (136-145); TCO2 36 mmol/L (25-35); TOTAL BILIRUBIN < 0.15 mg/dL (0.20-1.00); TOTAL PROTEIN 7.1 g/dL (6.3-8.3)
[2018-12-26] MEDS ORDERED: LEVAQUIN 750 MG/D5W 750 MG/150 ML IVPB IV ONE (23:47)
--- NOTE | 2018-12-27 00:46 | PROVIDER DOCUMENTATION ---
This chart was entered by Gali Rizvi Scribe, acting as scribe for Adán Monreal MD. HPI-Respiratory General - General Chief Complaint: Shortness of Breath Stated Complaint: cough/congestion Time Seen by Provider: 12/26/18 22:30 Source: patient Allergies/Adverse Reactions: Patient Allergies Allergy/AdvReac Type Severity Reaction Status Date / Time doxycycline Allergy RASH Verified 03/14/18 05:56 latex Allergy RASH Verified 03/14/18 05:56 oxycodone HCl * Allergy ITCHING Verified 03/14/18 05:56 [From OxyContin] Sulfa (Sulfonamide Allergy RASH Verified 03/14/18 05:56 Antibiotics) naproxen [From Naprosyn] AdvReac NAUSEA/VOMI Verified 03/14/18 05:56 TING Home Medications: Home Medication List Medication Instructions Recorded Confirmed Last Taken Type Omeprazole [Prilosec] 20 mg PO DAILY@0700 PRN 04/26/15 09/23/18 03/13/18 09:00 History Potassium Chloride 20 meq PO DAILY PRN PRN 04/26/15 09/23/18 1 Month Ago History ~02/12/18 Pregabalin [Lyrica] 100 mg PO TID 04/26/15 09/23/18 09/23/18 07:30 History ROSUVAstatin [Crestor] 10 mg PO QHS 04/26/15 09/23/18 03/12/18 21:00 History Albuterol Sulfate [Proair Hfa] 8.5 gm IH PRN PRN 05/03/16 09/23/18 09/21/18 History Aspirin [Ecotrin] 325 mg PO DAILY 05/03/16 09/23/18 09/22/18 History Glimepiride [Amaryl] 2 mg PO PRN PRN 05/03/16 09/23/18 09/09/18 History Duloxetine [Cymbalta] 30 mg PO BID 03/11/18 09/23/18 07/25/18 History Fluticasone 50 Mcg Nasal [place] 1 spray NS PRN PRN 09/23/18 09/23/18 09/23/18 History [Flonase] Sitagliptin Phos/Metformin HCl 1 each PO BID 09/23/18 09/23/18 Unknown History [Janumet 50-1,000 mg Tablet] Acetaminophen [Tylenol] 500 mg PO Q4H PRN #0 09/27/18 09/23/18 1 Month Ago Rx ~02/12/18 Clindamycin [Cleocin] 300 mg PO Q8HR #18 cap 09/27/18 Unknown Rx Furosemide [Lasix] 40 mg PO DAILY PRN #30 tab 09/27/18 Unknown Rx Hydrocodone/APAP 10 mg/325 mg 1 ea PO BID PRN #20 tab 09/27/18 Unknown Rx [[place]-10] Methylprednisolone [Medrol Dosepak] 4 mg PO DIRECTED #1 pkg 09/27/18 Unknown Rx Miconazole-7 Vag Supp [Monistat 7 1 supp VAG HS #7 box 10/01/18 Unknown Rx Vaginal Supp] - History of Present Illness-Resp Nature of Presenting Problem: Pt is 68/F presenting to ED with SOB. She was seen on Saturday by PCP and was given breathing treatment, antibiotics and a steroid shot. Sts that she is not feeling any better. Pt has COPD and has O2 at home, has had to turn the settings up from a 2 to a 3. Quality of Pain: reports: other (SOB, no cp reported) Severity in ED: reports: moderate Onset/Duration: reports: 3 days ago Timing: reports: still present Context: reports: other (COPD) Cough Quality/Degree: reports: moderate Episode Frequency: chronic episodes Current Respiratory Medication Therapy: Initiated albuterol Associated Symptoms: reports: cough, short of breath. denies: fever/chills, sinus pain Similar Symptoms Previously?: No Recently seen or treated by another doctor?: No Review of Systems - Adult - REVIEW OF SYSTEMS - ADULT Constitutional: reports: no symptoms reported. denies: chills, fever Eyes: reports: no symptoms reported Ears, Nose, Mouth & Throat: reports: no symptoms reported Cardiovascular: reports: no symptoms reported. denies: chest pain Respiratory: reports: cough, shortness of breath. denies: wheezing Gastrointestinal: reports: no symptoms reported Genitourinary: reports: no symptoms reported Musculoskeletal: reports: no symptoms reported Integumentary: reports: no symptoms reported Neurological: reports: no symptoms reported. denies: dizziness/vertigo, headache/migraines Psychiatric: reports: no symptoms reported Endocrine: reports: no symptoms reported Hematologic/Lymphatic: reports: no symptoms reported Allergic/Immunologic: reports: no symptoms reported All Other Systems: Reviewed and Negative Past History - Adult - PAST MEDICAL HISTORY-ADULT Review of Records: reports: Old Records Reviewed, Nursing Assessment Review, Medications Reviewed, Social history reviewed & non-contributory. Major Childhood Illnesses: reports: denies history Cardiovascular: reports: CHF, HTN Respiratory: reports: asthma, COPD, sleep apnea Gastrointestinal: reports: denies history Obstetrical/Gynecological: reports: denies history Genitourinary: reports: denies history Musculoskeletal: reports: denies history Neurological: reports: denies history Psychiatric: reports: denies history Endocrine/Immune: reports: Diabetes Other Conditions: reports: cataract/glaucoma - PRIOR SURGERIES/PROCEDURES Surgical/Procedure History: reports: hysterectomy, other (toe) - IMMUNIZATION STATUS Childhood Immunizations: See Nurse Assessment Flu Vaccine: See Nurse Assessment - FAMILY HISTORY Family History: reviewed, not pertinent - SOCIAL HISTORY Smoking: quit greater than 1 year Substance Use: none/never Alcohol Use Frequency: never Living Situation: family Physical Exam-General - PHYSICAL EXAM-ADULT Initial Vital Signs Reviewed: Yes - CONSTITUTIONAL General Appearance: appears well, alert, mild distress - EYES Eyes: PERRL/EOMI, pink conjunctivae - HEAD, EARS, NOSE, MOUTH & THROAT HENMT: normocephalic/atraumatic, moist mucous membranes, normal ENT inspection, TMs normal, pharynx normal - NECK Neck: non-tender, full range of motion, supple, normal inspection - RESPIRATORY Respiratory: chest non-tender, normal breath sounds, no pleuratic chest pain, no respiratory distress - CARDIOVASCULAR Cardiovascular: bradycardia (57) - GASTROINTESTINAL (ABDOMEN) Abdominal Exam: normal bowel sounds, non tender, soft - LYMPHATIC Lymphatic: no adenopathy - MUSCULOSKELETAL Back Exam: normal inspection, no CVA tenderness, no vertebral tenderness Extremity: non-tender - SKIN Integumentary: normal color, normal turgor, warm/dry - NEUROLOGIC Neurologic: grossly normal - PSYCHIATRIC Psych/Mental Status: normal mood/affect, normal thought content, normal thought process, oriented x 3 Progress - PLAN OF CARE/RESULTS Progress/Plan/Lab Results: Vital Signs - 8 hr 12/26/18 22:33 12/26/18 22:51 Temperature 98.1 F Pulse Rate 57 L 107 H Respiratory Rate 20 24 Blood Pressure 160/59 O2 Sat by Pulse Oximetry 93 L 94 L 12/26/18 22:45 Influenza Screen - Final Nasopharyngeal Laboratory Results - last 24 hr 12/26/18 12/26/18 12/26/18 22:30 22:30 22:30 WBC 8.89 RBC 5.06 Hgb 15.2 Hct 49.2 H MCV 97.2 MCH 30.0 MCHC 30.9 L RDW Std Deviation 12.8 Plt Count 264 MPV 11.0 H Immature Gran % (Auto) 0.2 Neut % (Auto) 65.5 Lymph % (Auto) 25.1 [place] % (Auto) 8.5 Eos % (Auto) 0.6 Baso % (Auto) 0.1 Immature Gran # (Auto) 0.02 Neut # (Auto) 5.82 Lymph # (Auto) 2.23 [place] # (Auto) 0.76 H Eos # (Auto) 0.05 Baso # (Auto) 0.01 Sodium 142 Potassium 4.9 Chloride 95 L Carbon Dioxide 36 H Anion Gap 11 BUN 17 Creatinine 1.1 H Estimated GFR/1.73 m2 50 BUN/Creatinine Ratio 15 Glucose 200 H Calculated Osmolality 290 Calcium 9.6 Total Bilirubin < 0.15 L AST 12 ALT 8 L Alkaline Phosphatase 73 Troponin T Isg-L-Sbcooujbkbe Pept 569 H Total Protein 7.1 Albumin 4.0 Globulin 3.1 Albumin/Globulin Ratio 1.3 Plasma Lactate 12/26/18 12/26/18 22:30 22:30 WBC RBC Hgb Hct MCV MCH MCHC RDW Std Deviation Plt Count MPV Immature Gran % (Auto) Neut % (Auto) Lymph % (Auto) [place] % (Auto) Eos % (Auto) Baso % (Auto) Immature Gran # (Auto) Neut # (Auto) Lymph # (Auto) [place] # (Auto) Eos # (Auto) Baso # (Auto) Sodium Potassium Chloride Carbon Dioxide Anion Gap BUN Creatinine Estimated GFR/1.73 m2 BUN/Creatinine Ratio Glucose Calculated Osmolality Calcium Total Bilirubin AST ALT Alkaline Phosphatase Troponin T < 0.010 Epy-M-Zanluthhorf Pept Total Protein Albumin Globulin Albumin/Globulin Ratio Plasma Lactate 2.1 Orders Category Date Time Status Nursing- Obtain EKG ONCE Care 12/26/18 22:35 Active cxr [CHEST-1 VIEW] [RAD] Stat Exams 12/26/18 22:34 Taken CBC WITH ELECTRONIC DIFF [HEME] Stat Lab 12/26/18 22:30 Completed COMPREHENSIVE METABOLIC PANEL [CHEM] Stat Lab 12/26/18 22:30 Completed INFLUENZA SCREEN A/B Stat Lab 12/26/18 22:45 Completed LACTATE, PLASMA [CHEM] Stat Lab 12/26/18 22:30 Completed PRO B-NATRIURETIC PEPTIDE Stat Lab 12/26/18 22:30 Completed TROPONIN T Stat Lab 12/26/18 22:30 Completed Albuterol 2.5MG/Ipratrop 0.5MG [Duoneb (A & A)] Med 12/26/18 22:36 Discontinued 3 ml INH NOW ONE Butalbital/APAP/Caffeine [Fioricet] Med 12/26/18 22:36 Discontinued 1 each PO NOW ONE Levofloxacin 750 mg/D5w [Levaquin 750 mg/D5w] Med 12/26/18 23:47 Active 750 mg in 150 ml IV NOW Methylprednisolone Sod Succ [Solu-Medrol] Med 12/26/18 22:36 Discontinued 125 mg IV NOW ONE Aerosol Treatments Routine Oth 12/26/18 22:37 Completed Aerosol Treatments Stat Oth 12/26/18 22:37 Completed EKG [EKG] Stat Ther 12/26/18 22:35 Ordered Result Diagrams: 12/26/18 22:30 12/26/18 22:30 - EKG 1 Time of EKG reading by physician:: 22:50 EKG Read and Signed by:: Adán Monreal EKG Interpretation (*Must complete 3 of following elements*): Normal (normal sinus rhythm, Normal ECG) Rate: 97 Rhythm: Sinus [place]: normal QRS: normal Departure - Departure Date of Disposition Decision: 12/27/18 Time of Disposition Decision: 00:46 DIAGNOSIS: COPD exacerbation Disposition: ADMITTED INPATIENT 09 Certified Medical Emergency: Emergent Condition: Stable Referrals and Follow-Ups: Callie Lopes [Primary Care Provider] - - Critical Care Note This patient required my direct & personal management of CC.: No Attestation - Physician/ YASH Attestation Patient care was provided by Advanced Practice Provider:: No The physician spent face to face time with patient:: Yes Advanced Practice Provider documentation review:: Supervising physician onsite and consulted in the evaluation and care of this patient. The physician did have a face to face encounter with the patient. This chart was documented by the indicated scribe, (Gali Rizvi, Collette) and accurately reflects the services I performed and decisions made by me, Adán Monreal MD, as attested by the provider's signature.
[2018-12-27] MEDS ORDERED: NORCO-5 PO ONE (01:23)
--- NOTE | 2018-12-27 02:29 | HISTORY AND PHYSICAL ---
PRIMARY CARE PHYSICIAN: Dr. Callie Lopes. CHIEF COMPLAINT: Shortness of breath x1 week. HISTORY OF PRESENTING ILLNESS: A 68-year-old female with a history of COPD, chronic low-back pain, diabetes mellitus type 2, hypertension, and hyperlipidemia, who had presented to emergency department with 1-week history of having worsening shortness of breath. The patient is irregularly on home oxygen, about 2 L. She states that she turned up her oxygen, however, she did not have any improvement. The patient also did her nebs treatment, however, she continued to have worsening symptoms and subsequently had come to the emergency department. In the ED she was evaluated, she was somewhat dyspneic. She was given nebs treatment. Started on IV Solu-Medrol and will place her in observation for further evaluation and management. At the time of my examination, patient denied any headache, fever, chills, chest pain, hemoptysis, melena, or weight changes, but complained of shortness of breath. PAST MEDICAL HISTORY: Includes COPD, chronic low-back pain, diabetes mellitus type 2, hypertension, hyperlipidemia. PAST SURGICAL HISTORY: Hysterectomy, pain pump, and back surgery. ALLERGIES: Sulfa, latex, and doxycycline. CURRENT MEDICATIONS: Include ProAir inhaler, aspirin 325 mg p.o. daily, Lasix 20 mg p.o. daily, Amaryl 4 mg p.o. daily, [place] 10 one p.o. b.i.d., lisinopril 2.5 mg p.o. daily, phentermine 37.5 mg p.o. b.i.d., Lyrica 100 mg p.o. t.i.d., Crestor 10 mg p.o. at bedtime, Janumet mg 1 p.o. b.i.d. SOCIAL HISTORY: She is a former smoker, she states she quit about 2 months ago. Denies any history of alcohol or illicit drug use. FAMILY HISTORY: No history of coronary disease. REVIEW OF SYSTEMS: Fourteen-point review of system as listed in HPI, other systems negative. PHYSICAL EXAMINATION: GENERAL: Cooperative, friendly female. She is resting more comfortably now. VITAL SIGNS: Temperature 98.1 degrees, pulse 57, respirations 20, blood pressure 160/59, she is saturating 93% on 2 L. HEENT: Atraumatic, normocephalic. Extraocular movements intact. PERRLA. NECK: No masses. CHEST: Rhonchi. CARDIOVASCULAR: Regular rate and rhythm. ABDOMEN: Soft. Positive bowel sounds. EXTREMITIES: No edema. NEURO: She is awake, alert, oriented x3. GENITOURINARY: No bladder distention. SKIN: Warm. LABORATORIES AND STUDIES: WBCs 8.89, hemoglobin 15.1, hematocrit 49.2, platelets 264,000. Sodium 142, potassium 4.9, chloride 95, CO2 is 36, BUN is 17, creatinine is 1.1. Glucose 200. Troponin 0.010. ASSESSMENT: A 68-year-old female with a history of chronic obstructive pulmonary disease on home O2, chronic low back pain, diabetes mellitus type 2, and hypertension, who presented to emergency department with 1-week history of worsening shortness of breath. She was evaluated in the emergency department. Due to her presenting symptoms, we will place her for observation for further evaluation and management. 1. Chronic obstructive pulmonary disease exacerbation. 2. Diabetes mellitus type 2. 3. Hypertension. 4. Chronic low back pain. PLAN: 1. We will admit patient to medical floor with telemetry. 2. Continue with DuoNebs, IV Solu-Medrol, IV antibiotics. 3. Monitor blood glucose and put patient on sliding scale insulin regimen. 4. Monitor blood pressure. Resume antihypertensive agent. 5. Continue with her current pain medication regimen. 6. Put patient on DVT prophylaxis, SCD. 7. We will continue to follow and reassess, make further recommendation based on patient's clinical course. cc: Dave Kimball MD
[2018-12-27] MEDS ORDERED: LASIX PO PRN (02:49)
[2018-12-27] MEDS ORDERED: LEVAQUIN 500 MG/D5W 500 MG/100 ML IVPB IV SCH ×2 (02:49→09:00)
[2018-12-27] MEDS ORDERED: ZOFRAN IV PRN (02:49)
[2018-12-27] MEDS ORDERED: SOLU-MEDROL IV SCH ×3 (02:49→07:00)
[2018-12-27] MEDS: DUONEB (A & A) INH SCH ×6 (06:03→23:33)
[2018-12-27] MEDS: HUMULIN R SUBQ SCH ×4 (06:39→20:37)
[2018-12-27 06:48] LABS: URINE SOURCE CLEAN CATCH
[2018-12-27 06:53] LABS: BILIRUBIN URINE NEGATIVE (NEGATIVE); BLOOD URINE NEGATIVE (NEGATIVE); COLOR YELLOW; GLUCOSE URINE 200 mg/dL (NEGATIVE); KETONE URINE NEGATIVE (NEGATIVE); LEUKOCYTES URINE NEGATIVE (NEGATIVE); NITRITE URINE NEGATIVE (NEGATIVE); PROTEIN URINE 70 mg/dL (NEGATIVE); SP GRAVITY URINE 1.011; TURBIDITY URINE CLEAR (CLEAR); UROBILINOGEN URINE NORMAL (NORMAL)
[2018-12-27 06:55] LABS: UR EPITHELIAL CELLS <10 /HPF (<10); URINE BACTERIA NEGATIVE /HPF; URINE RBC <10 /HPF (<10); URINE WBC <10 /HPF (<10)
--- NOTE | 2018-12-27 08:09 | Diag Imaging Result Doc PS360 ---
CHEST-1 VIEW - 12/26/2018 INDICATION: cough, sob COMPARISON: 09/30/2018 FINDINGS: The lungs are normally expanded and clear. Heart size and mediastinal contours are normal. No pneumothorax or pleural effusion. IMPRESSION: Negative exam. Electronically signed by Jonnathan Chávze 12/27/2018 8:06 AM
[2018-12-27] MEDS: NORCO-10 PO PRN ×2 (08:56→20:35)
[2018-12-27] MEDS: JANUVIA PO SCH ×2 (08:57→20:35)
[2018-12-27] MEDS: LYRICA PO SCH ×2 (08:57→13:14)
[2018-12-27] MEDS: ASPIRIN EC PO SCH (08:57)
[2018-12-27] MEDS: GLUCOPHAGE PO SCH ×2 (08:58→20:35)
[2018-12-27] MEDS: PRINIVIL PO SCH (08:58)
[2018-12-27] MEDS ORDERED: INSULIN PEN NEEDLES ONE (12:30)
--- NOTE | 2018-12-27 12:34 | PROGRESS NOTE ---
DATE: 12/27/2018 INTERVAL HISTORY: Ms. Fowler was admitted for acute COPD exacerbation. In the morning time, I was informed that after receiving intravenous Lasix at that time, patient suddenly started as if she was having an adverse reaction. She had started becoming flushed and there was some erythema at the injection site and she was getting short of breath, so levofloxacin infusion was stopped. She was also tachycardic at that time. Following the infusion was stopped, she started feeling better. Apparently, she did tolerate levofloxacin without any trouble in the past. SUBJECTIVE: At the time of my evaluation, she is feeling fine. She feels like her lungs are getting immersed in water and wants her home Lasix. Denies any chest pain. Her shortness of breath is mild. PHYSICAL EXAMINATION: Vital signs: Currently, temperature of 97.3 degrees, pulse 96, respiratory rate 18, blood pressure 132/66, saturating 94% on 2 L nasal cannula. General: Does not appear in any acute distress. HEENT: She does have what appears to be cervical subluxation and currently complaining of neck pain with tenderness in the occipital and posterior neck. Oral cavity is moist. Lungs: Adequate air entry bilateral suprascapular region. She has inspiratory crackles and end-expiratory wheezes bilateral infrascapular region. No rhonchi. Cardiovascular: S1, S2 normal. Regular. No murmur, rub, or gallop. Abdomen: Soft, nontender. Left lower quadrant she has a pain pump. Extremities: She has bilateral lower extremity edema and chronic stasis dermatitis changes in the lower hughes region. She also has amputation of left 1st and 2nd toe with well-healed stump on the left and she has a wound VAC on the right great toe for diabetic foot infection, which appears to be well healing. MICROBIOLOGY: Influenza screen was negative. IMAGING: Chest x-ray did not have any consolidation, though it did have pulmonary vascular congestion and interstitial infiltrate suggestive of edema on my evaluation. ASSESSMENT AND PLAN: 1. Acute chronic obstructive pulmonary disease exacerbation. I will continue patient on albuterol ipratropium nebulization and I will decrease the Solu-Medrol dose considering exacerbation appears mild. We will change antibiotics to ceftriaxone and azithromycin considering she had a reaction to levofloxacin. She had suspected allergic reactions to levofloxacin. Continue oxygenation for chronic hypoxic respiratory failure. 2. History of [id number]-[id number] diabetes mellitus with uncontrolled hyperglycemia. Continue home metformin, sitagliptin. Add glargine and sliding scale insulin as steroids could be contributing to her hyperglycemia. 3. Acute pulmonary edema. She had echocardiogram in September 2018 which was essentially unremarkable. I will continue her on her home Lasix dosing. 4. History of chronic back pain, on hydromorphone pump which she has implanted. 5. Others. Continue rosuvastatin for hyperlipidemia, aspirin and [place] which are her home medications, lisinopril for essential hypertension. 6. Disposition. Patient remains inside the hospital for close monitoring of respiratory status. Plan of care discussed with her. All of her questions have been answered thank you. cc: Lamont Bermudez MD
[2018-12-27] MEDS: ZITHROMAX PO SCH (13:15)
[2018-12-27] MEDS: LASIX PO SCH ×2 (13:15→20:35)
[2018-12-27] MEDS: BASAGLAR SUBQ SCH (13:15)
[2018-12-27] MEDS: ROCEPHIN 1 GM in NS 50 ML IV SCH (13:15)
[2018-12-27] MEDS: TYLENOL PO PRN ×2 (13:28→20:36)
[2018-12-27] MEDS: CRESTOR PO SCH (20:36)
[2018-12-28] MEDS: LYRICA PO SCH ×4 (01:22→21:07)
[2018-12-28] MEDS: DUONEB (A & A) INH SCH ×6 (05:04→23:40)
[2018-12-28] MEDS ORDERED: SOLU-MEDROL IV SCH (06:00)
[2018-12-28] MEDS: HUMULIN R SUBQ SCH ×4 (06:09→21:09)
[2018-12-28 07:40] LABS: EOS# 0.01 X1000 (0.0-0.7); EOS% 0.1 % (0.0-10.0); HEMATOCRIT 45.2 % (37.0-47.0); HEMOGLOBIN 14.1 g/dL (12.0-16.0); IMM GRAN# 0.02 X1000 (0.0-0.04); IMM GRAN% 0.2 % (0.0-0.5); LYMPH# 1.89 X1000 (1.2-3.4); LYMPH% 18.2 % (20.5-51.1); MCH 30.2 PG (27-31); MCHC 31.2 g/dL (33-37); MCV 96.8 FL (81-99); MONO# 0.76 X1000 (0.11-0.59); MONO% 7.3 % (1.7-9.3); MPV 11.1 FL (7.4-10.4); NEUT# 7.71 X1000 (1.4-6.5); NEUT% 74.2 % (42.2-75.2); PLT 243 X1000 (130-400); RBC 4.67 XMIL (4.2-5.4); RDW 12.6 % (11.5-14.5); WBC 10.39 X1000 (4.8-10.8)
[2018-12-28] MEDS: PRINIVIL PO SCH (09:27)
[2018-12-28] MEDS: ASPIRIN EC PO SCH (09:28)
[2018-12-28] MEDS: JANUVIA PO SCH ×2 (09:28→21:07)
[2018-12-28] MEDS: NORCO-10 PO PRN ×2 (09:28→21:32)
[2018-12-28] MEDS: GLUCOPHAGE PO SCH ×2 (09:29→21:07)
[2018-12-28] MEDS: LASIX PO SCH ×2 (09:29→21:07)
[2018-12-28] MEDS: BASAGLAR SUBQ SCH (09:29)
[2018-12-28] MEDS: ZITHROMAX PO SCH (09:29)
[2018-12-28] MEDS ORDERED: NS 50 ML ONE (09:33)
[2018-12-28] MEDS: ROCEPHIN 1 GM in NS 50 ML IV SCH (13:24)
[2018-12-28] MEDS: GYNE-LOTRIMIN VAGINAL CREAM VAG SCH (18:40)
--- NOTE | 2018-12-28 19:02 | PROGRESS NOTE ---
DATE: 12/28/2018 INTERVAL HISTORY: No acute event overnight. SUBJECTIVE: Patient is complaining of some right-sided headache, but her breathing has become significantly better. She denies new complaints. CURRENT VITAL SIGNS: Temperature of 98.1 degrees, pulse 98, respiratory rate 18, blood pressure 126/52, saturating 97% on 2 L nasal cannula. PHYSICAL EXAMINATION: General: Does not appear in any acute distress. HEENT: She has some localized tenderness in the right orthodoxy and right occipital region; however, no visual disturbance. She has had this kind of pain before and she thinks it is because of her body position and her constant coughing that is causing the problem. Oral cavity is moist. Lungs: Air entry bilaterally equal. No wheeze, rhonchi, crackles. Cardiovascular: S1, S2 normal. Regular. No murmur, rub, or gallop. Abdomen: Soft, nontender. She has a left lower quadrant pain pump. Extremities: She has bilateral lower extremity edema and chronic stasis dermatitis changes in the lower hughes region. 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 MICROBIOLOGY: No microbiological data. LABS: Normal hemoglobin, hematocrit, and platelet count. Blood sugars have been between 220 to 280. ASSESSMENT AND PLAN: 1. Acute chronic obstructive pulmonary disease exacerbation. Continue albuterol/ipratropium nebulization. Change steroids from intravenous to oral. Continue intravenous ceftriaxone and azithromycin. Continue oxygenation for chronic hypoxic respiratory failure. 2. History of noninsulin-dependent diabetes mellitus, with uncontrolled hyperglycemia related to steroid use. Continue home metformin, sitagliptin, glargine, and sliding scale insulin. 3. Acute pulmonary edema on presentation, resolved after resuming her home dose of Lasix, and her shortness of breath appears to have improved clinically. Echocardiogram in September 2018 was essentially unremarkable. 4. Chronic back pain, on hydromorphone pump. 5. Continue rosuvastatin for hyperlipidemia, aspirin and [place] for her chronic pain, lisinopril for essential hypertension, vaginal clotrimazole for vaginal candidiasis. 6. Chronic kidney disease, stage 2 to stage 3A, stable. DISPOSITION: The patient's condition essentially appears stable. If her respiratory status is stable, my plan would be to discharge her home with oral steroids on home oxygen. Plan of care discussed with her. All of her questions have been answered. cc: Lamont Bermudez MD
[2018-12-28] MEDS: CRESTOR PO SCH (21:07)
[2018-12-28] MEDS: TYLENOL PO PRN (21:32)
[2018-12-29] MEDS: DUONEB (A & A) INH SCH ×6 (00:20→19:30)
[2018-12-29] MEDS: HUMULIN R SUBQ SCH ×4 (06:18→20:34)
--- NOTE | 2018-12-29 08:10 | EKG Report ---
Test Performed on : 12/26/2018 10:50:12 PM Test Reason : sob Blood Pressure : / mmHG Vent. Rate : 097 BPM Atrial Rate : 097 BPM P-R Int : 156 ms QRS Dur : 078 ms QT Int : 350 ms P-R-T Axes : 086 035 069 degrees QTc Int : 444 ms Normal sinus rhythm. Normal ECG When compared with ECG of 23-SEP-2018 11:12, No significant change was found Unconfirmed Result
[2018-12-29] MEDS: ASPIRIN EC PO SCH (09:17)
[2018-12-29] MEDS: ZITHROMAX PO SCH (09:17)
[2018-12-29] MEDS: LYRICA PO SCH ×3 (09:17→20:33)
[2018-12-29] MEDS: JANUVIA PO SCH ×2 (09:17→20:33)
[2018-12-29] MEDS: PREDNISONE PO SCH (09:17)
[2018-12-29] MEDS: LASIX PO SCH ×2 (09:17→20:34)
[2018-12-29] MEDS: PRINIVIL PO SCH (09:17)
[2018-12-29] MEDS: GLUCOPHAGE PO SCH ×2 (09:17→20:34)
[2018-12-29] MEDS: BASAGLAR SUBQ SCH (09:21)
[2018-12-29] MEDS: GYNE-LOTRIMIN VAGINAL CREAM VAG SCH (09:25)
[2018-12-29] MEDS: NORCO-10 PO PRN ×2 (09:36→20:33)
[2018-12-29] MEDS: ROCEPHIN 1 GM in NS 50 ML IV SCH (11:39)
--- NOTE | 2018-12-29 20:23 | PROGRESS NOTE ---
DATE: 12/29/2018 INTERVAL HISTORY: No acute events overnight. SUBJECTIVE: Patient is denying any new complaints. She states that she occasionally gets winded when she walks to the bathroom and come back. She also needs help with portable O2. VITALS: Currently temperature 98, pulse 101, respiratory rate 16, blood pressure 125/88, saturating 94% 2 L nasal cannula. PHYSICAL EXAMINATION: General: Does not appear in acute distress. HEENT: Oral cavity is moist. Lungs: Air entry bilaterally equal. Mild end-expiratory wheezes. No rhonchi or crackles. Cardiovascular: S1, S2 normal. Not tachycardic. No murmur, rub or gallop. Abdomen: Soft, nontender. She has left lower quadrant pain pump. She has bilateral lower extremity edema and chronic stasis dermatitis changes in the lower hughes region. She also has amputation of left 1st and 2nd toes with well-healed stump on the left and wound VAC on the right great toe for diabetic foot infection, which appears to be well healing. Microbiology: No microbiological data. ASSESSMENT AND PLAN: 1. Acute chronic obstructive pulmonary disease exacerbation. Continue albuterol ipratropium nebulization. Continue p.o. steroids, intravenous ceftriaxone, azithromycin and oxygenation for chronic hypoxic respiratory failure. 2. History of [id number]-xziqmerme diabetes mellitus with uncontrolled hyperglycemia related to steroid use, currently in acceptable range mostly. Continue home metformin, sitagliptin, glargine and sliding scale insulin. 3. Acute pulmonary edema on presentation, resolved after resuming her home dose of Lasix and her shortness of breath has also clinically improved. September 2018 had echocardiogram which was unremarkable 4. Others. She is on hydromorphone pump for chronic back pain, rosuvastatin for hyperlipidemia, aspirin and [place] for chronic pain, lisinopril for essential hypertension, vagina clotrimazole for vaginal candidiasis. Her chronic kidney disease stage II to stage IIIA stable. 5. Disposition: If patient continues to feel better, my plan is to discharge her home on p.o. steroids tomorrow. Plan of care discussed with her. All of her questions have been answered. I will also consider consulting wound nurse as she was supposed to get evaluated for her wound VAC tomorrow as an outpatient and nursing home social worker for home portable oxygen. cc: MD FELICIA Kelly
[2018-12-29] MEDS: CRESTOR PO SCH (20:34)
[2018-12-30] MEDS: DUONEB (A & A) INH SCH ×7 (03:25→23:25)
[2018-12-30] MEDS: HUMULIN R SUBQ SCH ×4 (05:48→21:57)
[2018-12-30] MEDS: ZITHROMAX PO SCH (08:31)
[2018-12-30] MEDS: PRINIVIL PO SCH (08:31)
[2018-12-30] MEDS: GLUCOPHAGE PO SCH ×2 (08:31→21:57)
[2018-12-30] MEDS: LASIX PO SCH ×2 (08:31→18:15)
[2018-12-30] MEDS: JANUVIA PO SCH ×2 (08:32→21:57)
[2018-12-30] MEDS: LYRICA PO SCH ×3 (08:32→18:15)
[2018-12-30] MEDS: PREDNISONE PO SCH (08:32)
[2018-12-30] MEDS: ASPIRIN EC PO SCH (08:32)
[2018-12-30] MEDS: BASAGLAR SUBQ SCH (08:44)
[2018-12-30] MEDS: GYNE-LOTRIMIN VAGINAL CREAM VAG SCH (09:38)
[2018-12-30] MEDS: ROCEPHIN 1 GM in NS 50 ML IV SCH (12:13)
--- NOTE | 2018-12-30 15:13 | PROGRESS NOTE ---
DATE: 12/30/2018 INTERVAL HISTORY: No acute events. She continues to have shortness of breath. She states that she was able to go to the bathroom. However, once she comes back, she started feeling short of breath again. VITAL SIGNS: Currently suggest temperature 98 degrees, pulse 83, respiratory rate 20, blood pressure 123/108, saturating 95% on 2 L nasal cannula. PHYSICAL EXAMINATION: General: Does not appear in any acute distress. Oral cavity is moist. Lungs: Air entry bilaterally equal. Mild end-expiratory wheezes without any rhonchi. She does have inspiratory crackles at bilateral bases. S1, S2 normal. Not tachycardic. No murmur, rub, or gallop. Abdomen: Soft, nontender. She has left lower quadrant abdominal pain pump. She has mild bilateral lower extremity edema and chronic stasis dermatitis changes in the lower hug[place] region. 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 Her right-sided wound VAC has been removed and it is dressed at the moment. DIAGNOSTIC DATA: No microbiological data. ASSESSMENT AND PLAN: 1. Acute chronic obstructive pulmonary disease exacerbation. Continue albuterol-ipratropium nebulization, oral steroids, intravenous ceftriaxone and azithromycin, and oxygenation for chronic hypoxic respiratory failure. I will give her additional doses of Lasix. 2. History of [id number] diabetes mellitus with uncontrolled hyperglycemia related to steroid use, currently acceptable range. Continue home metformin, sitagliptin, current glargine, and sliding scale insulin. 3. Acute pulmonary edema on presentation. Considering she is still short of breath, I will increase her oral Lasix dose as well as start her on intravenous Lasix one dose today and another dose tomorrow morning. September 2018 echocardiogram was unremarkable. Her acute pulmonary edema could be related to heart failure with preserved ejection fraction exacerbation, mild. 4. Others. She is on hydromorphone pump for chronic back pain, rosuvastatin for hyperlipidemia which I will continue, continue aspirin and [place] for chronic pain, lisinopril for essential hypertension, vaginal clotrimazole for vaginal candidiasis. Her chronic kidney disease stage 2 to stage 3A is stable. I will follow up with [facility] tomorrow. 5. Disposition. Considering patient's persistent shortness of breath and acute chronic obstructive pulmonary disease exacerbation, I will monitor her inside the hospital. I will see her response to additional Lasix. If needed, I might consider chest imaging. Plan of care discussed with the patient. Her wound VAC on the right leg was removed today. All of her questions have been answered. cc: Lamont Bermudez MD
[2018-12-30] MEDS: LASIX IV ONE ×2 (16:05→16:07)
[2018-12-30] MEDS: CRESTOR PO SCH (21:57)
[2018-12-30] MEDS: NORCO-10 PO PRN (22:15)
[2018-12-31] MEDS: DUONEB (A & A) INH SCH ×6 (04:52→23:02)
[2018-12-31] MEDS ORDERED: LASIX IV ONE (06:00)
[2018-12-31] MEDS: HUMULIN R SUBQ SCH ×4 (06:18→21:22)
[2018-12-31 07:48] LABS: BASO# 0.01 X1000 (0.0-0.2); BASO% 0.1 % (0.0-0.8); EOS% 0.9 % (0.0-10.0); HEMATOCRIT 47.1 % (37.0-47.0); HEMOGLOBIN 14.5 g/dL (12.0-16.0); IMM GRAN# 0.06 X1000 (0.0-0.04); IMM GRAN% 0.5 % (0.0-0.5); LYMPH# 3.82 X1000 (1.2-3.4); LYMPH% 32.9 % (20.5-51.1); MCH 29.7 PG (27-31); MCHC 30.8 g/dL (33-37); MCV 96.3 FL (81-99); MONO# 0.99 X1000 (0.11-0.59); MONO% 8.5 % (1.7-9.3); MPV 11.4 FL (7.4-10.4); NEUT# 6.64 X1000 (1.4-6.5); NEUT% 57.1 % (42.2-75.2); PLT 247 X1000 (130-400); RBC 4.89 XMIL (4.2-5.4); RDW 12.7 % (11.5-14.5); WBC 11.62 X1000 (4.8-10.8)
[2018-12-31 08:13] LABS: CALCIUM 9.5 mg/dL (8.8-10.2); CREATININE 1.1 mg/dL (0.5-0.9); POTASSIUM 4.1 mmol/L (3.5-5.1)
[2018-12-31] MEDS: ASPIRIN EC PO SCH (09:49)
[2018-12-31] MEDS: GLUCOPHAGE PO SCH ×2 (09:49→21:21)
[2018-12-31] MEDS: JANUVIA PO SCH ×2 (09:49→21:21)
[2018-12-31] MEDS: LYRICA PO SCH ×3 (09:49→16:39)
[2018-12-31] MEDS: ZITHROMAX PO SCH (09:49)
[2018-12-31] MEDS: PRINIVIL PO SCH (09:50)
[2018-12-31] MEDS: PREDNISONE PO SCH (09:50)
[2018-12-31] MEDS: LASIX PO SCH ×2 (09:54→21:21)
[2018-12-31] MEDS: GYNE-LOTRIMIN VAGINAL CREAM VAG SCH (09:56)
[2018-12-31] MEDS: BASAGLAR SUBQ SCH (09:57)
[2018-12-31] MEDS: NORCO-10 PO PRN (10:01)
[2018-12-31] MEDS: ROCEPHIN 1 GM in NS 50 ML IV SCH (12:04)
--- NOTE | 2018-12-31 18:11 | PROGRESS NOTE ---
DATE: 12/31/2018 INTERVAL HISTORY: I was informed by the nursing team that when the patient went to the bathroom she started getting dizzy and she had called the emergency from the bathroom. When the nursing team arrived, she was sitting on the floor and nursing helped her move to the bed. SUBJECTIVE: At the time of my evaluation, she is feeling fine. She is complaining of a little dizziness. She is denying any chest pain. She also tells me that after a coughing spell she often times gets a little short of breath and wants me to order some antitussive medication. OBJECTIVE: Vital signs: She has been afebrile with temperature of 97.9 degrees, pulse 78, respiratory rate 20, blood pressure 102/51, saturating 94% on 2 L nasal cannula. General: Does not appear in any acute distress. HEENT: Oral cavity is moist. Lungs: Air entry bilaterally equal. Mild end-expiratory wheeze. No rhonchi. Her crackles have significantly improved. Cardiovascular: S1, S2 normal. Not tachycardic. No murmur, rub, or gallop. Abdomen: Soft, nontender. She has a left lower quadrant abdominal pain pump. Extremities: She has mild bilateral lower extremity edema and chronic stasis dermatitis changes in lower hughes region, which is improved from before. 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 Previously, she had a wound VAC which was removed during this hospital admission, which was related to a diabetic foot infection. LABS: Suggestive of mild leukocytosis. Normal hemoglobin, hematocrit, platelet count. She does have elevated carbon dioxide, which is normal for her. She has chronic kidney disease stage 3. MICROBIOLOGY: No new microbiological data. IMAGING: No new imaging data. ASSESSMENT AND PLAN: 1. Acute chronic obstructive pulmonary disease exacerbation. Continue albuterol ipratropium nebulization and taper the steroids. She has received 5 days of intravenous ceftriaxone and azithromycin and my plan is to stop these antibiotics tomorrow. Continue oxygenation for chronic hypoxic respiratory failure as she is using oxygen at home. 2. History of noninsulin-dependent diabetes mellitus with uncontrolled hyperglycemia related to steroid use. Currently in acceptable range. Continue home metformin, sitagliptin, current glargine, and sliding scale insulin. 3. Acute pulmonary edema on presentation. She probably has features of diastolic heart failure. However, the echocardiogram in September was unremarkable. She has been taking Lasix at home and I have her on home dose of Lasix. Currently pulmonary edema is resolved. 4. Dizziness. This dizziness could be her use off narcotic opioid pain medication and mild hypotension. I am stopping the lisinopril and [place] that she was on. Apparently, she does have hydromorphone abdominal pain pump implanted in her abdomen. 5. Others. She is on a hydromorphone pump for chronic back pain, rosuvastatin for hyperlipidemia, which I will continue. Continue aspirin. Continue vaginal clotrimazole for vaginal candidiasis and I will add a topical clotrimazole for tinea corporis affecting her left shoulder. Her chronic kidney disease stage 3 is stable. 6. Disposition. Patient is approaching close to discharge. She was dizzy today significantly, so I am going to keep her inside the hospital. If her dizziness resolves, my plan is to discharge her home with home physical therapy. She is refusing to go to rehab. Plan of care discussed with the patient. All of her questions have been answered. cc: Lamont Bermudez MD
[2018-12-31] MEDS: CRESTOR PO SCH (21:20)
[2018-12-31] MEDS: MUCINEX PO SCH (21:21)
[2018-12-31] MEDS: LOTRIMIN 1% CREAM TOP SCH ×2 (21:23→21:30)
[2019-01-01] MEDS: DUONEB (A & A) INH SCH ×3 (03:59→11:39)
[2019-01-01] MEDS: HUMULIN R SUBQ SCH ×4 (06:03→21:24)
[2019-01-01] MEDS ORDERED: INSULIN PEN NEEDLES ONE (07:32)
[2019-01-01] MEDS: LOTRIMIN 1% CREAM TOP SCH (09:04)
[2019-01-01] MEDS: ZITHROMAX PO SCH (09:23)
[2019-01-01] MEDS: ASPIRIN EC PO SCH (09:23)
[2019-01-01] MEDS: PREDNISONE PO SCH (09:24)
[2019-01-01] MEDS: GLUCOPHAGE PO SCH ×2 (09:24→21:24)
[2019-01-01] MEDS: LASIX PO SCH ×2 (09:24→21:24)
[2019-01-01] MEDS: MUCINEX PO SCH ×2 (09:25→21:24)
[2019-01-01] MEDS: JANUVIA PO SCH ×2 (09:25→21:23)
[2019-01-01] MEDS: BASAGLAR SUBQ SCH (09:37)
[2019-01-01] MEDS: LYRICA PO SCH ×3 (09:37→16:38)
[2019-01-01] MEDS: GYNE-LOTRIMIN VAGINAL CREAM VAG SCH (09:39)
[2019-01-01] MEDS: ROCEPHIN 1 GM in NS 50 ML IV SCH (12:14)
--- NOTE | 2019-01-01 12:30 | PROGRESS NOTE ---
DATE: 01/01/2019 SUBJECTIVE: Patient resting comfortably in bed. She is completely alert and oriented x3. She is demanding to use her [place] which she has been taking now for at least 20 years as needed. Apparently, yesterday she was dizzy and she sat herself on the floor while she was walking to the bathroom but as per the patient, she did not fall. She uses oxygen at home, 2 L. She also has a lesion on the right lower extremity and Surgery department is following this patient up as an outpatient with wound care. She does have an internal abdominal wall pump and we will continue with that. She has been getting treatment with the pump since 2001, and the [facility] are taking care of this. She is not wheezing today but she does have decreased breath sounds and some crackles at the bases. OBJECTIVE: Vital Signs: Temperature 97.7 degrees, pulse 82, respiratory rate 18, blood pressure 110/47, oxygen saturation 96% on 2 L of nasal cannula. HEENT: Head normocephalic, no trauma. PERRLA. Neck: Supple. No JVD. Central trachea. Chest: Decreased breath sounds at the bases with some crackles at the bases. No wheezing. No rhonchi. Cardiovascular: RRR. Abdomen: Soft, nontender, nondistended. Left lower quadrant abdominal pain pump. Extremities: Trace edema with stasis dermatitis. She also has amputated 1st and 2nd toes as well, healing stump on the left and right side toe has a dressing over it. LABORATORY DATA: Glucose 160. ASSESSMENT AND PLAN: 1. Acute on chronic obstructive pulmonary disease exacerbation. Continue with the same management. She has been on antibiotics. Continue with oxygen supplementation as well for her chronic hypoxic respiratory problem. I will stop the azithromycin and I will continue with ceftriaxone. 2. History of type 2 diabetes with uncontrolled hyperglycemia due to steroid use. Seems to be more stable. Continue with same management. 3. Acute pulmonary edema on presentation. She has been taking Lasix as needed at home. At this moment, she is getting Lasix 80 mg twice a day which I will decrease to 40 mg twice a day and I will recheck her kidney function and x-ray tomorrow. 4. Dizziness. This is probably a combination of pain medication and current condition with pulmonary edema and acute on chronic obstructive pulmonary disease exacerbation. She seems to be a little bit better today. We will continue to monitor. 5. Chronic back pain, on hydromorphone pump and p.o. treatment as well. She has been followed by the [facility]. Apparently, she has been taking [place] since 1996 and the SPECIALIZED DEVELOPER pump since 2001. 6. This patient is refusing to go to rehab. She seems to be weak. I will continue with the same management since she is improving, but I will decrease a little bit the dose of the Lasix and I will recheck a BMP and chest x-ray in the morning. I will ask Physical Therapy to evaluate this patient. cc: Arnold Mackey MD MTDD
[2019-01-01] MEDS ORDERED: NS NEB INH SCH (17:00)
[2019-01-01] MEDS: SODIUM CHLORIDE 0.9% INJ SCH (18:20)
[2019-01-01] MEDS: PROTONIX IV SCH (18:20)
[2019-01-01] MEDS: XOPENEX NEB INH SCH ×2 (20:20→23:20)
[2019-01-01] MEDS: ATROVENT NEB INH SCH ×2 (20:20→23:19)
[2019-01-01] MEDS: CRESTOR PO SCH (21:24)
[2019-01-01] MEDS: NORCO-10 PO PRN (21:33)
[2019-01-02] MEDS: ATROVENT NEB INH SCH ×6 (03:12→23:29)
[2019-01-02] MEDS: XOPENEX NEB INH SCH ×6 (03:12→23:30)
[2019-01-02] MEDS: PROTONIX IV SCH ×2 (05:43→16:43)
[2019-01-02] MEDS: SODIUM CHLORIDE 0.9% INJ SCH (05:43)
[2019-01-02] MEDS: NORCO-10 PO PRN ×2 (06:09→23:08)
[2019-01-02] MEDS: TYLENOL PO PRN ×2 (06:09→20:00)
[2019-01-02] MEDS: HUMULIN R SUBQ SCH ×4 (07:03→23:07)
--- NOTE | 2019-01-02 07:15 | Diag Imaging Result Doc PS360 ---
CHEST-PORTABLE - 01/02/2019 INDICATION: dyspnea COMPARISON: 12/26/2018 FINDINGS: The lungs are normally expanded and clear. Heart size and mediastinal contours are normal. No pneumothorax or pleural effusion. IMPRESSION: Negative exam. Electronically signed by Jonnathan Chávez 01/02/2019 7:13 AM
[2019-01-02 07:20] LABS: BASO# 0.01 X1000 (0.0-0.2); BASO% 0.1 % (0.0-0.8); EOS# 0.06 X1000 (0.0-0.7); EOS% 0.4 % (0.0-10.0); HEMATOCRIT 46.5 % (37.0-47.0); HEMOGLOBIN 14.9 g/dL (12.0-16.0); IMM GRAN# 0.08 X1000 (0.0-0.04); IMM GRAN% 0.6 % (0.0-0.5); LYMPH% 25.7 % (20.5-51.1); MCH 30.3 PG (27-31); MCV 94.5 FL (81-99); MONO# 1.06 X1000 (0.11-0.59); MONO% 7.8 % (1.7-9.3); MPV 11.4 FL (7.4-10.4); NEUT% 65.4 % (42.2-75.2); PLT 274 X1000 (130-400); RBC 4.92 XMIL (4.2-5.4); RDW 12.4 % (11.5-14.5); WBC 13.61 X1000 (4.8-10.8)
[2019-01-02 07:44] LABS: CALCIUM 9.2 mg/dL (8.8-10.2); CREATININE 1.2 mg/dL (0.5-0.9); POTASSIUM 3.6 mmol/L (3.5-5.1)
[2019-01-02] MEDS: JANUVIA PO SCH ×2 (10:12→23:08)
[2019-01-02] MEDS: LYRICA PO SCH ×3 (10:12→17:55)
[2019-01-02] MEDS: GLUCOPHAGE PO SCH ×2 (10:12→23:08)
[2019-01-02] MEDS: ASPIRIN EC PO SCH (10:13)
[2019-01-02] MEDS: PREDNISONE PO SCH (10:13)
[2019-01-02] MEDS: LASIX PO SCH (10:13)
[2019-01-02] MEDS: MUCINEX PO SCH ×2 (10:13→23:08)
[2019-01-02] MEDS: GYNE-LOTRIMIN VAGINAL CREAM VAG SCH (10:13)
[2019-01-02] MEDS: BASAGLAR SUBQ SCH (10:14)
[2019-01-02] MEDS: LOTRIMIN 1% CREAM TOP SCH ×2 (10:15→23:08)
[2019-01-02] MEDS: ROCEPHIN 1 GM in NS 50 ML IV SCH (12:16)
--- NOTE | 2019-01-02 14:40 | PROGRESS NOTE ---
DATE: 01/02/2019 SUBJECTIVE: The patient seems to be feeling better today. She is still coughing a lot and having some phlegm which is brown-greenish. She is on home O2. She is still having wheezing and feeling weak. I will continue with the same pain management. OBJECTIVE: Vital Signs: Temperature 97.6 degrees, pulse 73, respiratory rate 18, blood pressure 114/72, oxygen saturation 100% on 2 L of nasal cannula. HEENT: Head normocephalic. No trauma. PERRLA. Neck: Supple. No JVD. No masses. Central trachea. Chest: Decreased breath sounds globally, mostly at the bases with some crackles and wheezing. Some crepitus at the bases as well. Cardiovascular: Regular rate and rhythm. Abdomen: Soft, nontender, nondistended. No hepatosplenomegaly. Left lower quadrant abdominal pain pump with no abnormalities. Extremities: Trace edema with stasis dermatitis. She also has amputated the first and second toes. Healing stump on the left side and right side toe has dressing over it. LABORATORY DATA: WBC 13.6, hemoglobin 14.9, hematocrit 46.5, platelets 274,000. Sodium 142, potassium 3.6, chloride 92, bicarbonate 41, BUN 61, creatinine 1.2, glucose 77, calcium 9.2. ASSESSMENT AND PLAN: 1. Acute chronic obstructive pulmonary disease exacerbation. I will continue with the same management, antibiotics, oxygen supplementation, breathing treatment. Azithromycin has been stopped and I will continue with ceftriaxone. I believe this patient can be discharged in the next 48 to 72 hours. She has been placed on prednisone as well. 2. Type 2 diabetes with uncontrolled hyperglycemia, probably due to steroid use. She seems to be more stable. Will monitor. 3. Acute pulmonary edema on presentation. This patient has been taking Lasix as needed at home. The pulmonary edema basically resolved. I will stop the Lasix and I will monitor. 4. Dizziness, resolved. Probably a combination of pain medication and current chronic obstructive pulmonary disease exacerbation. She seems to be better. 5. Chronic back pain. Continue with same management. She is on a LABORER LANDSCAPE pump and [place] as needed. 6. Disposition. Likely this patient will go home. She does not want to go to a rehab center. I will continue with the same management. I have stopped the Lasix treatment. X-ray looks good, even though she has been coughing up a lot of brown-greenish phlegm, and she is still wheezing. Continue to monitor. cc: Arnold Mackey MD
[2019-01-02] MEDS: CRESTOR PO SCH (23:08)
[2019-01-03] MEDS: ATROVENT NEB INH SCH ×6 (03:11→23:23)
[2019-01-03] MEDS: XOPENEX NEB INH SCH ×6 (03:12→23:23)
[2019-01-03] MEDS: HUMULIN R SUBQ SCH ×4 (06:32→20:22)
[2019-01-03] MEDS: SODIUM CHLORIDE 0.9% INJ SCH ×2 (06:38→17:47)
[2019-01-03] MEDS: PROTONIX IV SCH ×2 (06:38→17:47)
[2019-01-03 07:55] LABS: BASO# 0.01 X1000 (0.0-0.2); BASO% 0.1 % (0.0-0.8); EOS# 0.07 X1000 (0.0-0.7); EOS% 0.5 % (0.0-10.0); HEMATOCRIT 43.7 % (37.0-47.0); HEMOGLOBIN 13.8 g/dL (12.0-16.0); IMM GRAN# 0.05 X1000 (0.0-0.04); IMM GRAN% 0.4 % (0.0-0.5); LYMPH# 2.87 X1000 (1.2-3.4); LYMPH% 22.5 % (20.5-51.1); MCH 29.8 PG (27-31); MCHC 31.6 g/dL (33-37); MCV 94.4 FL (81-99); MONO# 0.74 X1000 (0.11-0.59); MONO% 5.8 % (1.7-9.3); MPV 11.5 FL (7.4-10.4); NEUT% 70.7 % (42.2-75.2); PLT 235 X1000 (130-400); RBC 4.63 XMIL (4.2-5.4); RDW 12.2 % (11.5-14.5); WBC 12.74 X1000 (4.8-10.8)
[2019-01-03 08:02] LABS: HEMOGLOBIN A1C 7.5 % (4.8-6.0)
[2019-01-03 08:42] LABS: CALCIUM 9.6 mg/dL (8.8-10.2); CREATININE 1.1 mg/dL (0.5-0.9); POTASSIUM 4.1 mmol/L (3.5-5.1)
[2019-01-03] MEDS: PREDNISONE PO SCH (09:29)
[2019-01-03] MEDS: ASPIRIN EC PO SCH (09:29)
[2019-01-03] MEDS: GLUCOPHAGE PO SCH ×2 (09:29→20:10)
[2019-01-03] MEDS: MUCINEX PO SCH ×2 (09:29→20:10)
[2019-01-03] MEDS: BASAGLAR SUBQ SCH (09:30)
[2019-01-03] MEDS: LOTRIMIN 1% CREAM TOP SCH ×2 (09:30→20:10)
[2019-01-03] MEDS: JANUVIA PO SCH ×2 (09:30→20:09)
[2019-01-03] MEDS: LYRICA PO SCH ×3 (09:30→20:10)
[2019-01-03] MEDS: NORCO-10 PO PRN ×2 (09:31→20:10)
--- NOTE | 2019-01-03 11:37 | PROGRESS NOTE ---
DATE: 01/03/2019 SUBJECTIVE: The patient seems to be feeling better today, but she is still coughing and having shortness of breath. Her phlegm is brown to greenish. She is on home O2. She is still having wheezing and feeling weak. We will continue with the same management. OBJECTIVE: Vital Signs: Temperature 97.5 degrees, pulse 68, respiratory rate 18, blood pressure 123/61, and oxygen saturation 99 on 2 L of nasal cannula. HEENT: Head normocephalic. No trauma. PERRLA. Neck: Supple. No JVD. No masses. Central trachea. Chest: Decreased breath sounds globally mostly at the bases with some crackles and wheezing. Some crepitus at the bases as well. Cardiovascular: RRR. Abdomen: Soft, nontender, and nondistended. No hepatosplenomegaly. Abdominal pain pump with no abnormalities. Extremities: Trace edema with stasis dermatitis. She also has some amputated toes, and her right dressing with a toe lesion. Wound care on board. LABORATORY: WBC 12.7, hemoglobin 13.8, hematocrit 43.7, and platelets 235,000. Sodium 141, potassium 4.1, chloride 94, bicarbonate 35, BUN 56, creatinine 1.1, glucose 83 and calcium 9.6. ASSESSMENT AND PLAN: 1. Acute on chronic obstructive pulmonary disease exacerbation. I will continue with the same management, antibiotics, oxygen supplementation, and steroids, which is p.o., breathing treatment, and pulmonary toilet. She was on azithromycin and ceftriaxone. Azithromycin and ceftriaxone have been stopped. I will place this patient on Zosyn. Also, I will try to collect a sputum culture. So far, this patient seems to be feeling a little bit better, but she is still having symptoms. 2. Type 2 diabetes with uncontrolled hyperglycemia, probably due to steroid. This is better controlled. Her hemoglobin is 7.5. Probably upon discharge, we can continue with her home medications. 3. Acute pulmonary edema on presentation. This patient has been placed on Lasix as needed at home, but she received some doses of Lasix during this hospitalization. This has been stopped. I will get a new x-ray tomorrow morning to decide if she needs some more Lasix. 4. Dizziness, resolved. Probably, a combination of pain medication and current COPD exacerbation. She seems to be better. 5. Chronic back pain. Continue with same management. She is on a ENVIRONMENTAL SPECIALIST pump and [place] as needed. She has been followed by the [facility]. Apparently, she has been taking [place] since 1996 and the ENVIRONMENTAL SPECIALIST pump since 2001. 6. Disposition: Likely, this patient can be discharged in the next probably 48 hours. She does not want to go to a rehab center. She will go home. We will continue with the same management. I will switch the antibiotics. I will wait for the sputum culture. Lasix has been stopped. I will get a new x-ray in the morning. She does have Lasix at home as needed. cc: Arnold Mackey MD
[2019-01-03] MEDS: ZOSYN 3.375 GM in NS 50 ML IV SCH ×3 (13:24→23:49)
[2019-01-03] MEDS: CRESTOR PO SCH (20:10)
[2019-01-04] MEDS: XOPENEX NEB INH SCH ×6 (03:16→23:25)
[2019-01-04] MEDS: ATROVENT NEB INH SCH ×6 (03:16→23:25)
[2019-01-04] MEDS: PROTONIX IV SCH ×2 (05:19→17:54)
[2019-01-04] MEDS: SODIUM CHLORIDE 0.9% INJ SCH ×2 (05:19→17:54)
[2019-01-04] MEDS: ZOSYN 3.375 GM in NS 50 ML IV SCH ×3 (05:19→17:54)
[2019-01-04 05:32] LABS: ALLEN TEST YES; BE 6.7 mmoll (-3.0-3.0); BLOOD TYPE ARTERIAL; O2HB 92.2 % (95.0-99.0); PO2(98.6) 67 mmHg (60-100); SAMPLE BLOOD; SAO2 95.2 % (95.0-100.0); THB 13.9 g/dL (11.5-17.4); pH(98.6) 7.38 (7.35-7.45)
[2019-01-04 05:41] LABS: MODALITY CANNULA; PCO2(98.6) 57 mmHg (35-45)
[2019-01-04] MEDS: HUMULIN R SUBQ SCH ×4 (06:36→21:59)
--- NOTE | 2019-01-04 07:20 | Diag Imaging Result Doc PS360 ---
EXAM: CHEST-PORTABLE HISTORY: dyspnea TECHNIQUE: Chest single view COMPARISON: 01/02/2019 FINDINGS: The lungs are well expanded. No cardiomegaly. No pleural effusions identified. There is increased density in the right apex. No other abnormality. IMPRESSION: Questionable small infiltrate in the upper right lung Electronically signed by Tim Zabala 01/04/2019 7:18 AM
[2019-01-04 07:50] LABS: BASO# 0.01 X1000 (0.0-0.2); BASO% 0.1 % (0.0-0.8); EOS# 0.07 X1000 (0.0-0.7); EOS% 0.5 % (0.0-10.0); HEMATOCRIT 46.3 % (37.0-47.0); HEMOGLOBIN 14.5 g/dL (12.0-16.0); IMM GRAN# 0.08 X1000 (0.0-0.04); IMM GRAN% 0.6 % (0.0-0.5); LYMPH# 3.21 X1000 (1.2-3.4); LYMPH% 22.8 % (20.5-51.1); MCH 29.8 PG (27-31); MCHC 31.3 g/dL (33-37); MCV 95.3 FL (81-99); MONO% 5.7 % (1.7-9.3); MPV 11.6 FL (7.4-10.4); NEUT# 9.93 X1000 (1.4-6.5); NEUT% 70.3 % (42.2-75.2); PLT 248 X1000 (130-400); RBC 4.86 XMIL (4.2-5.4); RDW 12.3 % (11.5-14.5)
[2019-01-04 08:05] LABS: CALCIUM 9.6 mg/dL (8.8-10.2); CREATININE 1.1 mg/dL (0.5-0.9); POTASSIUM 4.3 mmol/L (3.5-5.1)
[2019-01-04] MEDS: GLUCOPHAGE PO SCH ×2 (08:59→22:03)
[2019-01-04] MEDS: MUCINEX PO SCH ×2 (08:59→22:02)
[2019-01-04] MEDS: JANUVIA PO SCH ×2 (08:59→22:03)
[2019-01-04] MEDS: ASPIRIN EC PO SCH (08:59)
[2019-01-04] MEDS: LYRICA PO SCH ×3 (08:59→22:04)
[2019-01-04] MEDS: LOTRIMIN 1% CREAM TOP SCH (08:59)
[2019-01-04] MEDS: BASAGLAR SUBQ SCH (09:00)
[2019-01-04] MEDS: NORCO-10 PO PRN (09:06)
--- NOTE | 2019-01-04 15:40 | PROGRESS NOTE ---
DATE: 01/04/2019 SUBJECTIVE: Patient is resting in bed. Not in any obvious distress. OBJECTIVE: Vital Signs: Temperature 98 degrees, pulse 76, respiratory rate 20, blood pressure 126/56, oxygen saturation 99%. HEENT: Atraumatic, normocephalic. Cardiovascular System: S1, S2. Respiratory System: Has evidence of good air entry bilaterally. Abdomen: Soft, nontender. No masses felt. Extremities: No evidence of edema. Central Nervous System: No obvious focal deficits noted. Labs: WBC is 14.1, hematocrit is 46.3, with a platelet count of 248,000. ABG 7.38/57/ [*]/95.2%. Chemistry: Sodium is 142, potassium 4.3, chloride is 98, bicarb is 30, BUN is 42 , creatinine is 1.1. X-ray of the chest shows a questionable small infiltrate in the right upper lobe. ASSESSMENT AND PLAN: 1. Acute on chronic respiratory failure. Maintain patient on low-dose oxygen. Follow up on respiratory status. Treat primary lung condition. 2. Chronic obstructive pulmonary disease exacerbation. Maintain patient on nebulized bronchodilators, steroids, as well as antibiotics. 3. Probable pneumonia. Check sputum culture and blood cultures. Continue antibiotics. 4. Diabetes mellitus type 2. Maintain patient on sliding scale insulin and also monitor blood sugar levels. 5. Acute pulmonary edema. Continue diuretics as needed. Check 2D echocardiogram of the heart to assess the patient's current ejection fraction. 6. Chronic back pain. Optimize pain control. 7. Disposition. The patient seemed to be doing fairly well. I think she should be ready to be discharged in the next 24 to 48 hours. cc: Edgar Roth MD
[2019-01-04] MEDS: CRESTOR PO SCH (22:03)
[2019-01-05] MEDS: ZOSYN 3.375 GM in NS 50 ML IV SCH ×4 (00:30→18:27)
[2019-01-05] MEDS: LOTRIMIN 1% CREAM TOP SCH ×3 (02:41→23:13)
[2019-01-05] MEDS: ATROVENT NEB INH SCH ×6 (03:38→23:24)
[2019-01-05] MEDS: XOPENEX NEB INH SCH ×6 (03:39→23:24)
[2019-01-05] MEDS: NORCO-10 PO PRN ×3 (03:49→22:06)
[2019-01-05] MEDS: PROTONIX IV SCH ×2 (03:50→04:05)
[2019-01-05] MEDS: HUMULIN R SUBQ SCH ×5 (05:49→22:09)
[2019-01-05] MEDS: MUCINEX PO SCH ×2 (09:39→22:07)
[2019-01-05] MEDS: JANUVIA PO SCH ×2 (09:39→22:07)
[2019-01-05] MEDS: BASAGLAR SUBQ SCH (09:39)
[2019-01-05] MEDS: ASPIRIN EC PO SCH (09:39)
[2019-01-05] MEDS: LYRICA PO SCH ×3 (09:39→22:06)
[2019-01-05] MEDS: GLUCOPHAGE PO SCH ×2 (09:39→22:07)
--- NOTE | 2019-01-05 11:30 | EKG Report ---
Test Performed on : 01/04/2019 9:16:48 PM Test Reason : 3N. No order in MT Blood Pressure : / mmHG Vent. Rate : 081 BPM Atrial Rate : 081 BPM P-R Int : 156 ms QRS Dur : 088 ms QT Int : 380 ms P-R-T Axes : 076 005 045 degrees QTc Int : 441 ms Normal sinus rhythm. Minimal voltage criteria for LVH, may be normal variant Cannot rule out Anterior infarct , age undetermined Abnormal ECG When compared with ECG of 26-DEC-2018 22:50, (Unconfirmed) No significant change was found Confirmed by Rachel HA, Eusebio ([id number]) on 01/06/2019 8:35:18 AM
[2019-01-05] MEDS ORDERED: GYNE-LOTRIMIN VAGINAL CREAM VAG SCH (21:00)
[2019-01-05] MEDS: PROTONIX PO SCH (22:07)
[2019-01-05] MEDS: CRESTOR PO SCH (22:07)
[2019-01-05] MEDS: MONISTAT-7 VAG CREAM VAG SCH ×2 (22:08→23:15)
[2019-01-06] MEDS: ZOSYN 3.375 GM in NS 50 ML IV SCH ×2 (00:20→06:06)
[2019-01-06] MEDS: XOPENEX NEB INH SCH ×4 (03:54→16:00)
[2019-01-06] MEDS: ATROVENT NEB INH SCH ×4 (03:54→15:59)
[2019-01-06] MEDS: HUMULIN R SUBQ SCH (06:07)
[2019-01-06] MEDS: PROTONIX PO SCH (06:10)
[2019-01-06] MEDS: DUONEB (A & A) INH SCH (06:51)
[2019-01-06] MEDS: LYRICA PO SCH (10:23)
[2019-01-06] MEDS: MUCINEX PO SCH (10:23)
[2019-01-06] MEDS: JANUVIA PO SCH (10:23)
[2019-01-06] MEDS: GLUCOPHAGE PO SCH (10:23)
[2019-01-06] MEDS: ASPIRIN EC PO SCH (10:24)
[2019-01-06] MEDS: BASAGLAR SUBQ SCH (10:25)
[2019-01-06 15:22] VITALS: BP 141/69
--- NOTE | 2019-01-06 20:42 | DISCHARGE SUMMARY ---
ADMISSION DATE: 12/29/2018 DISCHARGE DATE: 01/06/2019 DISCHARGE DIAGNOSES: 1. Chronic obstructive pulmonary disease exacerbation. 2. Type 2 diabetes, with uncontrolled hyperglycemia. 3. Acute pulmonary edema, on presentation. 4. Dizziness, resolved. 5. Chronic back pain. 6. Likely bronchitis. PROCEDURES PERFORMED: 1. Chest x-ray, dated 12/26/2018, impression: Negative exam. 2. Chest x-ray, dated 01/02/2019, impression: Negative exam. 3. Chest x-ray, dated 01/04/2019, impression: Questionable small infiltrate in the right lung. 4. Electrocardiogram, dated 12/26/2018, impression: Normal sinus rhythm. 5. Electrocardiogram, dated 01/04/2019, impression: Normal sinus rhythm. HOSPITAL COURSE: This is a 68-year-old female, with a past medical history of COPD, chronic low back pain, diabetes, hypertension, hyperlipidemia, who presented to the emergency department with a 1 week history of worsening shortness of breath. She was admitted on 01/04/2019. The patient is irregularly on home oxygen, about 2 L. She states that she increased the oxygen at home; however, she did not have any improvement. Also, she did her nebulization treatment; however, she continued to have worsening symptoms and subsequently had to come to the emergency department. In the emergency department, she was evaluated and she was dyspneic. She was given a breathing treatment and she received steroids. She was placed on breathing treatment and also on antibiotics. At home, she is using a hydromorphone pump and also on treatment with [place], and apparently she has been using that for more than 15 years. Actually, as per the patient, she has been taking [place] since 1996 and the DRAY TRUCK DRIVER pump since 2001. She seems to be a little bit weak. We offered the possibility of sending this patient to a rehabilitation center, but she declined that. She was improving on a daily basis. We continued with the same medications that she was getting at home. This patient today is not complaining of shortness of breath, nausea or vomiting. She is feeling much better, so we will discharge this patient home. She needs to continue with her breathing treatment, antibiotics, pain management per her pain clinic, and followup by her primary care doctor in 1 or 2 weeks. OBJECTIVE: Vital Signs: Temperature 98.6 degrees, pulse 81, respiratory rate 16, blood pressure 128/79, oxygen saturation 99 on 3 L of nasal cannula. HEENT: Head normocephalic, no trauma. PERRLA. Neck: Supple. No JVD. No masses. Central trachea. Chest: Decreased breath sounds globally with prolonged expiratory phase. Cardiovascular: RRR. Abdomen: Soft, nontender, nondistended. No hepatosplenomegaly. Extremities: No edema, no clubbing, no cyanosis. Neurological: This patient is alert. She is following commands. Oriented. She has some generalized weakness. LABORATORY: On 01/04/2019: WBC 14.1, hemoglobin 14.5, hematocrit 46.3, platelets 248,000. Sodium 142, potassium 4.3, chloride 98, bicarbonate 33, BUN 42, creatinine 1.1, glucose today is 80, calcium 9.6. Troponin is negative x2. DISCHARGE MEDICATIONS: 1. Tylenol 500 mg p.o. q.4 hours as needed. 2. Albuterol sulfate 1 inhaler as needed every 4 to 6 hours. 3. Cefdinir 300 mg p.o. b.i.d. for 4 more days. 4. Aspirin 325 mg p.o. daily. 5. Flonase 1 spray nasally as needed. 6. Furosemide 20 mg p.o. daily as needed. 7. Amaryl 4 mg p.o. 8. Mucinex 600 mg p.o. b.i.d. 9. [place] 10 one tablet p.o. b.i.d. as needed. 10. Atrovent HFA 2 puff inhaler 4 times a day. 11. Lisinopril 2.5 mg p.o. daily. 12. Phentermine 37.5 mg p.o. b.i.d. 13. Potassium chloride 20 mg p.o. daily as needed. 14. Lyrica 100 mg p.o. t.i.d. 15. Crestor 10 mg p.o. at bedtime. 16. Janumet mg tablet, 50 mg p.o. b.i.d. TIME DISCHARGING THIS PATIENT: 35 minutes. FOLLOWUP: She needs to follow with her primary care doctor in 1 or 2 weeks. cc: Arnold Mackey MD
== END 2019-01-06 19:50 | disposition home health service (06) | DRG 190 ==
LOC: SUPCPDRO → ED 22:26 → INTOOBSV 12-27 02:29 → 3N 12-27 02:29 → SUATTDRO 12-27 02:29 → 3N 01-01 19:23
PROVIDERS: ATTEND Internal Medicine
CPT/HCPCS: 71010; 71045; 80048; 80053; 81001; 82550; 82805; 82948; 83036; 83605; 83880; 84484; 85025; 87040; 87070; 87205; 87275; 87276; 87804; 93005; 93010; 93306; 94640; 94760; 94761; 96374; 97110; 97162; 97530; 99285; A9270; C8929; C9113; J0696; J1940; J1956; J2543; J2930; J7506; J7512; Q9957; S0164; XXXXX

== ENCOUNTER 2019-08-04 12:04 | Inpatient (IN) ==
[2019-08-04] MEDS ORDERED: NORCO-10 PO PRN (12:29)
[2019-08-04] MEDS ORDERED: NS 1,000 ML IV SCH (12:30)
[2019-08-04] MEDS ORDERED: LEVAQUIN 500 MG in NS 100 ML IV SCH (12:30)
--- NOTE | 2019-08-04 17:19 | HISTORY AND PHYSICAL ---
CHIEF COMPLAINT: Left foot ulcer with pain and foul drainage. HISTORY OF PRESENT ILLNESS: This is a 68-year-old female well known to me with chronic ulcers of her feet. She has been [facility] some time. She has developed a worsening ulcer on her left foot that has now tunneled through to the dorsal aspect with increased redness, swelling, and foul odor. There is purulent drainage. She feels lousy with increased fatigue and generalized body aches. She has had nausea and shortness of breath. Recent workup includes a foot x-ray which was unrevealing. However, a bone scan revealed increased uptake in the left 3rd metatarsal consistent with osteomyelitis. Erythrocyte sedimentation rate is elevated at 23. Her most recent white blood cell count 4 days ago was 13,000. PAST MEDICAL HISTORY: Type 2 diabetes, chronic diabetic foot ulcers, chronic venous insufficiency, hypertension, COPD. PAST SURGICAL HISTORY: Left 1st and 2nd toe amputation, appendectomy, hysterectomy, bilateral tubal ligation, right greater saphenous vein ablation. HOME MEDICATIONS: Chantix, prednisone, Prilosec, Symbicort, Adipex, lisinopril, Lasix, [place], glimepiride, aspirin, albuterol, Crestor, Lyrica. ALLERGIES: Levaquin, naproxen, sulfa, oxycodone, latex, doxycycline. REVIEW OF SYSTEMS: She has had some lightheadedness, muscle aches, nausea, left foot pain and swelling with foul drainage. Otherwise, 10 systems reviewed and negative except as noted above. FAMILY HISTORY: Reviewed and noncontributory. SOCIAL HISTORY: She does smoke less than 1 pack per day. No alcohol or illicit drug use. PHYSICAL EXAMINATION: VITAL SIGNS: Temperature 97.6 degrees, pulse 113, respirations 22, blood pressure 113/68. GENERAL: Well-developed female in no distress who looks her stated age. HEENT: Normocephalic, atraumatic. Extraocular muscles intact. Pupils equal, round, reactive to light. Sclerae anicteric. NECK: Supple. No thyromegaly. CV: Tachycardic and regular. RESPIRATORY: Bilateral breath sounds. No work of breathing. GI: Soft, nontender, nondistended. No organomegaly or mass. MUSCULOSKELETAL: Moves all extremities equally and well. EXTREMITIES: She does have palpable pedal pulses. There is no significant edema in her legs or cyanosis. SKIN: The left foot has a plantar ulcer with slough in it. There is tunneling through the dorsal aspect at the base of the 3rd and 4th toes where there is foul drainage and surrounding redness. It is also tender to palpation. The right foot ulcers have healed with some residual callus only. LABORATORY: As mentioned above in HPI. IMAGING: As mentioned above in HPI. ASSESSMENT AND PLAN: A 68-year-old female with chronic diabetic foot ulcers now with likely acute on chronic osteomyelitis of the left foot. She has already had her 1st and 2nd toes amputated on the left foot. I do not anticipate any further healing or salvage of the toes and I recommended a transmetatarsal amputation on the left. We will plan on going ahead admitting her today, starting her on systemic antibiotics and preparing for the surgery tomorrow. We went over the risks and benefits including bleeding, ongoing infection, difficulty with wound healing, and other imponderables. She understands and agrees to proceed. cc: Kunal Nix MD
[2019-08-04] MEDS: HUMULIN R SUBQ SCH ×2 (17:54→22:03)
[2019-08-04] MEDS: ZOSYN 3.375 GM in NS 50 ML IV SCH (17:57)
[2019-08-04] MEDS: FLAGYL 500 MG/NS 500 MG/100 ML IVPB IV SCH ×2 (18:44→22:00)
[2019-08-04] MEDS ORDERED: NICODERM PATCH TD PRN (19:38)
[2019-08-04 21:47] LABS: URINE SOURCE CLEAN CATCH
[2019-08-04 21:51] LABS: BILIRUBIN URINE NEGATIVE (NEGATIVE); BLOOD URINE NEGATIVE (NEGATIVE); COLOR YELLOW; GLUCOSE URINE NEGATIVE (NEGATIVE); KETONE URINE NEGATIVE (NEGATIVE); LEUKOCYTES URINE MODERATE (NEGATIVE); NITRITE URINE NEGATIVE (NEGATIVE); PH URINE 6.5; PROTEIN URINE TRACE mg/dL (NEGATIVE); SP GRAVITY URINE 1.015; TURBIDITY URINE CLEAR (CLEAR); UROBILINOGEN URINE NORMAL (NORMAL)
[2019-08-04 22:00] LABS: UR EPITHELIAL CELLS <10 /HPF (<10); URINE BACTERIA NEGATIVE /HPF; URINE WBC 20-40 /HPF (<10)
[2019-08-04] MEDS: PREDNISONE PO SCH (22:04)
[2019-08-04] MEDS: NORCO-10 PO PRN (22:35)
[2019-08-05] MEDS: ZOSYN 3.375 GM in NS 50 ML IV SCH ×2 (00:59→05:24)
[2019-08-05] MEDS: FLAGYL 500 MG/NS 500 MG/100 ML IVPB IV SCH ×2 (01:40→06:11)
[2019-08-05] MEDS ORDERED: PNEUMOVAX 23 IM ONE (04:14)
--- NOTE | 2019-08-05 05:46 | CONSULTATION ---
DATE OF CONSULTATION: 08/04/2019 CHIEF COMPLAINT: Left foot pain, ulcer, osteomyelitis. HISTORY OF PRESENT ILLNESS: 68-year-old female with a past medical history of COPD, chronic low back pain, peripheral neuropathy. Now she is using a pain pump, diabetes, hypertension, hyperlipidemia, has been admitted by Surgery Department due to left foot ulcer with pain and foul. She is not having any kind of exacerbation from her COPD. Last echocardiogram done on 09/25/2018 showed no significant valvular abnormality and normal left ventricular systolic function without regional wall motion abnormality, mild left atrial enlargement. She is not complaining of chest pain or shortness of breath today, but it looks like this patient has been having this problem with the drainage and the ulcer which is chronic, and the plan is to probably do a transmetatarsal amputation of that area. She already had amputated the 1st and 2nd toe on the left side, surgery department on board. We will monitor this patient closely. She denies nausea, vomiting, diarrhea, constipation, fever or chills. No chest pain. No dysuria. No double vision or headache. REVIEW OF SYSTEMS: All the point of review of systems were reviewed; all of them negative except as per HPI. PAST MEDICAL HISTORY: 1. She was discharged on 01/06/2019 due to chronic obstructive pulmonary disease exacerbation. 2. Also, she has a medical history of type 2 diabetes. 3. Chronic back pain. 4. Peripheral neuropathy, which is severe. Previous amputation of the 1st and 2nd toe due to osteomyelitis as well. PAST SURGICAL HISTORY: 1. Hysterectomy. 2. Pain pump on her left lower abdomen. 3. Back surgery. 4. Amputation of the 1st and 2nd toes. ALLERGIES: 1. Sulfa. 2. Latex. 3. Doxycycline. SOCIAL HISTORY: She is still smoking. As per the patient she is smoking 5 cigarettes per day. She denies alcohol or drugs. FAMILY HISTORY: Noncontributory. Vital signs: Temperature 98.9 degrees, pulse 72, respiratory rate 18, blood pressure 116/68, oxygen saturation 96% on room air. HEENT: Head normocephalic, atraumatic. PERRLA. Neck: Supple. No JVD. No masses. Central trachea. Chest: Clear to auscultation. No wheezing. No rales. Abdomen: Soft, nontender, nondistended. No hepatosplenomegaly. Extremities: Trace lower extremity edema. No clubbing. No cyanosis. She does have a plantar ulcer between the 3rd and 4th metatarsal head that is draining a foul material. The ulcer is around 1 cm of diameter and is surrounded by erythema, is painful to palpation. Also, she has an ulcer between the 3rd and 4th toes that is draining also. LABORATORY: Laboratory was done 4 days ago with a WBC of 13.8, hemoglobin 14.4, hematocrit 47.2, platelet count 320,000. PT 13.6, INR 1.03, PTT 29.3. Sodium 142, potassium 5.5, chloride 93, bicarbonate 36, BUN 17, creatinine 0.9, glucose 192. Hemoglobin A1c 7.5, calcium 9.5, AST 10, ALT 9, alkaline phosphatase 72, TSH 1.1. Urine with some protein and glucose and C difficile toxin is negative from that day also. ASSESSMENT AND PLAN: 1. Left diabetic foot ulcer, now with likely acute on chronic osteomyelitis. She has been placed on antibiotics and likely this patient will have a transmetatarsal amputation and the plan is to get a transmetatarsal amputation. She already had her 1st and 2nd toe amputated before. She will be n.p.o. after midnight and hopefully the surgery will be tomorrow. 2. History of chronic obstructive pulmonary disease, not in exacerbation, we will continue to monitor. 3. Type 2 diabetes, recent hemoglobin A1c seems to be stable. We will put this patient on sliding scale insulin and pattern of blood sugar. 4. Hypertension stable. Continue with same management. 5. Chronic back pain and peripheral neuropathy. As per the patient this is quite severe and she has a pain pump at the level of the left lower abdominal area with no signs of infection. As per the patient, this pump gives her I gave her Dilaudid. Thank you for the consultation. cc: MD Kunal Mena MD
[2019-08-05] MEDS ORDERED: FENTANYL ONE (06:12)
[2019-08-05] MEDS ORDERED: XYLOCAINE-MPF 2% ONE (06:12)
[2019-08-05] MEDS ORDERED: DIPRIVAN 1% ONE (06:12)
[2019-08-05] MEDS ORDERED: VERSED ONE (06:12)
[2019-08-05] MEDS: HUMULIN R SUBQ SCH ×4 (06:24→22:04)
[2019-08-05] MEDS ORDERED: DECADRON ONE (07:06)
[2019-08-05] MEDS ORDERED: ZOFRAN ONE (07:06)
[2019-08-05 07:28] LABS: INR 0.9; PROTIME 12.2 Seconds (11.0-16.0)
[2019-08-05 07:37] LABS: CALCIUM 9.1 mg/dL (8.8-10.2); CREATININE 1.2 mg/dL (0.5-0.9); POTASSIUM 5.4 mmol/L (3.5-5.1)
[2019-08-05] MEDS ORDERED: EPHEDRINE ONE (07:43)
[2019-08-05 07:52] LABS: BASO# 0.01 X1000 (0.0-0.2); BASO% 0.1 % (0.0-0.8); EOS# 0.01 X1000 (0.0-0.7); EOS% 0.1 % (0.0-10.0); HEMATOCRIT 47.6 % (37.0-47.0); HEMOGLOBIN 14.8 g/dL (12.0-16.0); IMM GRAN# 0.02 X1000 (0.0-0.04); IMM GRAN% 0.2 % (0.0-0.5); LYMPH# 1.28 X1000 (1.2-3.4); LYMPH% 11.3 % (20.5-51.1); MCH 28.8 PG (27-31); MCHC 31.1 g/dL (33-37); MCV 92.6 FL (81-99); MONO# 0.15 X1000 (0.11-0.59); MONO% 1.3 % (1.7-9.3); MPV 11.1 FL (7.4-10.4); NEUT# 9.85 X1000 (1.4-6.5); PLT 328 X1000 (130-400); RBC 5.14 XMIL (4.2-5.4); RDW 12.4 % (11.5-14.5); WBC 11.32 X1000 (4.8-10.8)
[2019-08-05 08:22] LABS: BANDS 1 % (0-1); LYMPHS 15 % (21-51); MONO 3 % (1-9); SEGS 81 % (42-75)
[2019-08-05] MEDS ORDERED: PATIENT'S OWN MED PO SCH (09:01)
[2019-08-05] MEDS ORDERED: AMARYL PO PRN (09:01)
[2019-08-05] MEDS: NORCO-10 PO PRN ×4 (09:29→22:02)
[2019-08-05] MEDS ORDERED: LANTUS INSULIN SUBQ ONE (09:40)
[2019-08-05] MEDS: ZOFRAN IV PRN ×2 (09:53→14:03)
[2019-08-05] MEDS: LYRICA PO SCH ×3 (11:30→17:16)
[2019-08-05] MEDS: GLUCOPHAGE PO SCH ×2 (11:31→17:16)
[2019-08-05] MEDS: PREDNISONE PO SCH (11:32)
[2019-08-05] MEDS: PRINIVIL PO SCH (11:32)
[2019-08-05] MEDS: JANUVIA PO SCH ×2 (11:32→17:16)
[2019-08-05] MEDS: LASIX PO SCH ×2 (11:41→22:06)
[2019-08-05] MEDS: PRILOSEC PO SCH ×2 (11:41→22:05)
--- NOTE | 2019-08-05 12:50 | OPERATIVE NOTE ---
PROCEDURE DATE: 08/05/2019 PREOPERATIVE DIAGNOSES: 1. Left diabetic foot infection. 2. Left foot osteomyelitis. POSTOPERATIVE DIAGNOSES: 1. Left diabetic foot infection. 2. Left foot osteomyelitis. PROCEDURE PERFORMED: Left transmetatarsal amputation. SURGEON: Kunal Nix MD. ANESTHESIA: General. ESTIMATED BLOOD LOSS: 50 mL. COMPLICATIONS: None apparent. SPECIMENS: Distal left foot. FINDINGS: The distal plantar left foot ulcer had foul drainage. However, the proximal portions of the metatarsal bones appeared to be viable and without gross disease. TECHNIQUE: The patient was brought to the operating room and placed supine on the table. General anesthesia was induced. She was prepped and draped in the usual sterile fashion. A fishmouth incision was made with a 10 blade around the mid foot and carried down through the dermis sharply. Cautery was used to continue dissection on the dorsal aspect through the soft tissues down to the metatarsal shafts. I cleaned off the shaft of the metatarsals anteriorly and posteriorly with cautery and the periosteal elevator, and then divided the shafts of the metatarsals proximally with the power saw. I then completed the soft tissue division posteriorly with the knife and cautery, and the distal foot was removed. Cautery was used for hemostasis as well as a hemostat on a couple of interdigital artery branches. These were clamped and ligated with 3-0 Vicryl. I then irrigated the wound copiously with saline. There appeared to be good hemostasis. There was no grossly purulent or necrotic tissue. We changed gloves. Then I closed the subcutaneous layer with interrupted 3-0 Polysorb and the skin with interrupted vertical mattress 3-0 nylon. A sterile dressing was applied. There were no apparent complications. She was awakened in stable condition and transferred to the recovery room. cc: Kunal Nix MD
[2019-08-05] MEDS: CLEOCIN PO SCH ×2 (14:03→22:06)
--- NOTE | 2019-08-05 18:07 | PROGRESS NOTE ---
DATE: 08/05/2019 SUBJECTIVE: The patient is status post transmetatarsal amputation on the left side, vital signs are stable. She is tolerating p.o. I have placed this patient back on her home medications, she has been placed on clindamycin by Surgery Department and I agree with that. I will continue with sliding scale insulin as well. OBJECTIVE: Vital Signs: Temperature 97.6 degrees, pulse 78, respiratory rate 15, blood pressure 108/50, oxygen saturation 97% on 2 L of nasal cannula. HEENT: Head normocephalic, no trauma. PERRLA. Neck: Supple. No JVD. No masses. Central trachea. Chest: Clear to auscultation. Some crepitus at the bases. Abdomen: Soft, nontender, nondistended. No hepatosplenomegaly. Extremities: Her left foot is covered with a dressing, she had a transmetatarsal amputation today. Neurological: Patient is alert and oriented x3. No focal deficits. LABORATORY: WBC 11.3, hemoglobin 14.8, hematocrit 47.6, platelets 328,000. Sodium 137, potassium 5.4, chloride 94, bicarbonate 30, BUN 30, creatinine 1.2, glucose 335, calcium 9.1. ASSESSMENT AND PLAN: 1. Left diabetic foot ulcer, status post left transmetatarsal amputation by Surgery Department. We will continue to monitor. Continue with antibiotics and pain medication. 2. History of chronic obstructive pulmonary disease, not in exacerbation at this moment. We will continue to monitor. 3. Type 2 diabetes. Her hemoglobin A1c seems to be stable. Continue with sliding scale insulin and pattern blood sugar and home medications. 4. Hypertension. Stable. Continue with same management. 5. Chronic back pain and peripheral neuropathy, which apparently is severe and she has a pain pump at the level of the left lower abdomen area with no signs of infection. As per the patient, she is getting Dilaudid through the pump. 6. Likely chronic kidney disease, her baseline is between 1 to 1.2. Today, her creatinine is 1.2. We will continue with the same management. Continue to monitor. 7. Mild hyperkalemia, we will monitor just for now. She is getting Lasix which probably will decrease the amount of potassium. cc: MD Kunal Mena MD
[2019-08-05] MEDS: CRESTOR PO SCH (22:06)
[2019-08-06] MEDS: CLEOCIN PO SCH ×4 (02:38→21:25)
[2019-08-06] MEDS: NORCO-10 PO PRN ×5 (02:41→21:25)
[2019-08-06] MEDS: ZOFRAN IV PRN (02:45)
[2019-08-06 06:12] LABS: BASO# 0.01 X1000 (0.0-0.2); BASO% 0.1 % (0.0-0.8); EOS# 0.01 X1000 (0.0-0.7); EOS% 0.1 % (0.0-10.0); HEMATOCRIT 40.1 % (37.0-47.0); HEMOGLOBIN 12.6 g/dL (12.0-16.0); LYMPH# 1.68 X1000 (1.2-3.4); LYMPH% 8.5 % (20.5-51.1); MCH 29.2 PG (27-31); MCHC 31.4 g/dL (33-37); MONO# 0.73 X1000 (0.11-0.59); MONO% 3.7 % (1.7-9.3); NEUT# 17.42 X1000 (1.4-6.5); NEUT% 87.6 % (42.2-75.2); PLT 301 X1000 (130-400); RBC 4.31 XMIL (4.2-5.4); RDW 12.4 % (11.5-14.5); WBC 19.85 X1000 (4.8-10.8)
[2019-08-06] MEDS: HUMULIN R SUBQ SCH ×3 (06:44→16:42)
[2019-08-06] MEDS: PRILOSEC PO SCH ×2 (06:54→21:25)
[2019-08-06 07:53] LABS: CALCIUM 8.8 mg/dL (8.8-10.2); CREATININE 1.4 mg/dL (0.5-0.9); POTASSIUM 4.9 mmol/L (3.5-5.1)
[2019-08-06] MEDS: LYRICA PO SCH ×3 (09:38→21:30)
[2019-08-06] MEDS: GLUCOPHAGE PO SCH ×2 (09:39→16:50)
[2019-08-06] MEDS: JANUVIA PO SCH ×2 (09:44→16:51)
[2019-08-06] MEDS: ASPIRIN EC PO SCH (09:44)
[2019-08-06] MEDS ORDERED: MONISTAT-7 VAG CREAM VAG PRN (09:52)
[2019-08-06] MEDS: DUONEB (A & A) INH PRN ×2 (10:39→15:16)
[2019-08-06] MEDS: LASIX PO SCH (10:51)
[2019-08-06] MEDS: PRINIVIL PO SCH (10:51)
--- NOTE | 2019-08-06 11:09 | GENERAL SURGERY PROGRESS NOTE ---
DATE: 08/06/2019 SUBJECTIVE: She feels okay. Minimal pain. No fevers. OBJECTIVE: Pulse 67, blood pressure 102/59. I reviewed her labs. White count is up slightly. Hematocrit is overall stable. Creatinine is 1.4. ASSESSMENT AND PLAN: This is a 68-year-old female status post left transmetatarsal amputation. Continue local wound care. I will plan on removing her dressing tomorrow. Social work has seen her as far as rehabilitation going forward. cc: MD Kunal Guajarod MD
--- NOTE | 2019-08-06 11:10 | PROGRESS NOTE ---
DATE: 08/06/2019 SUBJECTIVE: This patient is doing better today. Her creatinine increased a little bit compared with yesterday. I discussed this with the patient and apparently at home she takes the furosemide as needed, so I will hold it for now as well the lisinopril, and I will monitor. Also, I have stopped yesterday the steroids because she is not having any problems with chronic obstructive pulmonary disease exacerbation. Otherwise, she is doing fine. She is complaining of left foot pain, but controlled with the pain medication. OBJECTIVE: Vital Signs: Temperature 98.3 degrees, pulse 80, respiratory rate 16, blood pressure 134/59, oxygen saturation 97% on 2 liters of nasal cannula. HEENT: Head normocephalic, no trauma. PERRLA. Neck: Supple. No JVD. No masses. Central trachea. Chest: Clear to auscultation. No wheezing. No rales. Abdomen: Soft, nontender, nondistended. No hepatosplenomegaly. Extremities: She has a transmetatarsal amputation on the left side. Neurological: The patient is alert. She is oriented x3. No focal deficits. LABORATORY DATA: WBC 19.8, hemoglobin 12.6, hematocrit 40.1, platelets 301,000. Sodium 135, potassium 4.9, chloride 95, bicarbonate 24, BUN 38, creatinine 1.4, glucose 158, calcium 8.8. ASSESSMENT AND PLAN: 1. Left diabetic foot ulcer, status post left transmetatarsal amputation by Surgery Department. We will continue to monitor. Continue with antibiotics and pain medication. She seems to be doing fine. 2. History of chronic obstructive pulmonary disease, not in exacerbation at this moment. I have discontinued the steroids yesterday, and I will put her on breathing treatment as needed. 3. Acute on chronic kidney disease. Her creatinine increased a little bit compared with yesterday. As per the patient, she takes 120 mg of furosemide in the morning and 80 in the afternoon as needed, so I will hold it for now, as well as the lisinopril, but she is doing fine. 4. Hypertension, stable. 5. Chronic back pain and peripheral neuropathy. She has a pain pump at the level of the left lower abdominal area. No signs of infection. Continue with same management. 6. Mild hyperkalemia. We will monitor for now. 7. Type 2 diabetes. Hemoglobin A1c seems to be stable, as well as the blood sugar today. 8. I do believe this patient can be discharged in the next 24 to 48 hours, but I will wait for Surgery Department evaluation and recommendations. cc: MD Kunal Mena MD
[2019-08-06] MEDS: CRESTOR PO SCH (21:25)
[2019-08-07] MEDS: HUMULIN R SUBQ SCH ×5 (00:25→21:35)
[2019-08-07] MEDS: NORCO-10 PO PRN ×5 (02:38→21:34)
[2019-08-07] MEDS: CLEOCIN PO SCH ×4 (02:38→21:34)
[2019-08-07] MEDS: PRILOSEC PO SCH ×2 (06:24→21:34)
[2019-08-07 07:06] LABS: BASO# 0.02 X1000 (0.0-0.2); BASO% 0.2 % (0.0-0.8); HEMATOCRIT 40.8 % (37.0-47.0); HEMOGLOBIN 12.3 g/dL (12.0-16.0); IMM GRAN# 0.03 X1000 (0.0-0.04); IMM GRAN% 0.3 % (0.0-0.5); LYMPH# 3.59 X1000 (1.2-3.4); LYMPH% 34.2 % (20.5-51.1); MCH 28.7 PG (27-31); MCHC 30.1 g/dL (33-37); MCV 95.1 FL (81-99); MONO# 0.66 X1000 (0.11-0.59); MONO% 6.3 % (1.7-9.3); MPV 11.4 FL (7.4-10.4); NEUT# 6.09 X1000 (1.4-6.5); PLT 278 X1000 (130-400); RBC 4.29 XMIL (4.2-5.4); RDW 12.7 % (11.5-14.5); WBC 10.49 X1000 (4.8-10.8)
[2019-08-07 07:24] LABS: CALCIUM 8.4 mg/dL (8.8-10.2); CREATININE 1.5 mg/dL (0.5-0.9); POTASSIUM 4.8 mmol/L (3.5-5.1)
[2019-08-07] MEDS: DUONEB (A & A) INH PRN ×3 (07:52→16:21)
[2019-08-07] MEDS: LYRICA PO SCH ×3 (10:00→21:34)
[2019-08-07] MEDS: ASPIRIN EC PO SCH (10:00)
[2019-08-07] MEDS: GLUCOPHAGE PO SCH ×2 (10:00→16:02)
[2019-08-07] MEDS: JANUVIA PO SCH ×2 (10:00→16:02)
--- NOTE | 2019-08-07 12:21 | GENERAL SURGERY PROGRESS NOTE ---
DATE: 08/07/2019 SUBJECTIVE: She is in the restroom taking sponge bath. OBJECTIVE: No fevers documented. Pulse 94, blood pressure 123/66. General: She is alert. She is standing upright in the bathroom getting a bath. Her left foot dressing is clean without any drainage. White count 10, hematocrit 40, creatinine is 1.5. ASSESSMENT AND PLAN: This is a 68-year-old female status post left transmetatarsal amputation by Dr. Nix. Overall, she is doing okay. I will remove her dressing tomorrow. She is on appropriate antibiotics. We will continue to follow along. cc: MD Kunal Guajardo MD
--- NOTE | 2019-08-07 14:47 | PROGRESS NOTE ---
DATE: 08/07/2019 SUBJECTIVE: The patient is doing better. BUN and creatinine are still elevated compared with baseline, but she is making good urine output. She is tolerating p.o. She is not overloaded. She is not wheezing either. I will continue holding the lisinopril and furosemide. OBJECTIVE: Vital Signs: Temperature 97.9 degrees, pulse 94, respiratory rate 16, blood pressure 123/66, oxygen saturation 95% on room air. HEENT: Head normocephalic, no trauma. PERRLA. Neck: Supple. No JVD. No masses. Central trachea. Chest: Clear to auscultation. No wheezing. No rales. Abdomen: Soft, nontender, nondistended. No hepatosplenomegaly. Extremities: She has an transmetatarsal amputation on the left side. She has chronic redness at the level of the legs and some pain also. Neurological: The patient is alert and oriented x3. No focal deficits. LABORATORY DATA: WBC 10.4, hemoglobin 12.3, hematocrit 40.8, platelets 278,000. Sodium 142, potassium 4.8, chloride 101, bicarbonate 29, BUN 46, creatinine 1.5, glucose 179, calcium 8.4. ASSESSMENT AND PLAN: 1. Left diabetic foot ulcer status post transmetatarsal amputation by Surgery Department, postoperative day #2. Surgery Department following this patient closely. We will continue to monitor. 2. History of chronic obstructive pulmonary disease, not in exacerbation at this moment. 3. Acute on chronic kidney disease. Her baseline creatinine is between 1 and 1.2. Today her creatinine is 1.5 but she is making good urine and we have been holding her diuretics and lisinopril. 4. Hypertension, stable. 5. Chronic back pain and peripheral neuropathy. Continue with pain medication. She also has a pain pump at the level of the left lower abdominal area. 6. Mild hyperkalemia, resolved. 7. Type 2 diabetes. Hemoglobin A1c seems to be stable. Continue with same management and blood sugar is stable. cc: MD Kunal Mena MD
[2019-08-07] MEDS: CRESTOR PO SCH (21:34)
[2019-08-08] MEDS: NORCO-10 PO PRN ×6 (02:15→23:32)
[2019-08-08] MEDS: CLEOCIN PO SCH ×4 (02:15→20:52)
[2019-08-08] MEDS: PRILOSEC PO SCH ×2 (06:37→20:52)
[2019-08-08] MEDS: HUMULIN R SUBQ SCH ×4 (06:51→23:33)
[2019-08-08] MEDS: DUONEB (A & A) INH PRN (07:37)
[2019-08-08 07:46] LABS: CALCIUM 8.5 mg/dL (8.8-10.2); CREATININE 1.1 mg/dL (0.5-0.9); POTASSIUM 4.3 mmol/L (3.5-5.1)
[2019-08-08] MEDS: ASPIRIN EC PO SCH (08:35)
[2019-08-08] MEDS: GLUCOPHAGE PO SCH ×2 (08:35→16:46)
[2019-08-08] MEDS: JANUVIA PO SCH ×2 (08:35→16:46)
[2019-08-08] MEDS: LYRICA PO SCH ×3 (08:35→23:33)
--- NOTE | 2019-08-08 12:47 | GENERAL SURGERY PROGRESS NOTE ---
DATE: 08/08/2019 SUBJECTIVE: Doing well. No pain, no fevers, no tachycardia. EXAMINATION: Her left transmetatarsal amputation is intact. LAB: Creatinine is 1.1. ASSESSMENT AND PLAN: A 68-year-old female with left transmetatarsal amputation. She is overall doing well. We will continue local wound care, offloading, physical therapy and plan for possible rehab versus home PT. cc: MD Kunal Guajardo MD
--- NOTE | 2019-08-08 13:21 | PROGRESS NOTE ---
DATE: 08/08/2019 SUBJECTIVE: The patient is doing much better. Her wound seems to be fine. Surgery Department evaluated this patient. OBJECTIVE: Vital Signs: Temperature 98.1 degrees, pulse 81, respiratory rate 20, blood pressure 144/66, oxygen saturation 94% on room air. HEENT: Head normocephalic, no trauma. PERRLA. Neck: Supple. No JVD. No masses. Central trachea. Chest: Clear to auscultation. No wheezing. No rales. Abdomen: Soft, nontender, nondistended. No hepatosplenomegaly. Extremities: She has a transmetatarsal amputation of the left side. She has a chronic redness at the level of the legs and some pain also. Neurological: Alert and oriented x3. No focal deficits. LABORATORY: Sodium 143, potassium 4.3, chloride 102, bicarbonate 27, BUN 32, creatinine 1.1, glucose 231, calcium 8.5. ASSESSMENT AND PLAN: 1. Left diabetic foot ulcer, status post transmetatarsal amputation by Surgery Department. Postoperative day #3. Continue with same management. 2. History of chronic obstructive pulmonary disease, not in exacerbation. 3. Acute on chronic kidney disease, back to her baseline. 4. Hypertension, stable. 5. Chronic back pain and peripheral neuropathy, continue pain medication. She also has a pain pump at the level of the lower abdomen. 6. Mild hyperkalemia, resolved. 7. Type 2 diabetes with a hemoglobin A1c that seems to be stable. Continue with same management. Today, this patient is hyperglycemic because she decided to eat a cheesecake. cc: MD Kunal Mena MD
[2019-08-08] MEDS: CRESTOR PO SCH (20:52)
[2019-08-09] MEDS: CLEOCIN PO SCH ×4 (01:59→21:26)
[2019-08-09] MEDS: NORCO-10 PO PRN ×5 (03:31→21:25)
[2019-08-09] MEDS: HUMULIN R SUBQ SCH ×4 (06:59→21:32)
[2019-08-09] MEDS: PRILOSEC PO SCH ×2 (07:03→21:26)
[2019-08-09 07:14] LABS: AGAP 11; BUN 22 mg/dL (8-22); CALCIUM 8.3 mg/dL (8.8-10.2); CHLORIDE 103 mmol/L (98-107); COSMO 287; CREATININE 0.8 mg/dL (0.5-0.9); ESTIMATED GFR > 60; GLUCOSE 109 mg/dL (70-104); POTASSIUM 4.5 mmol/L (3.5-5.1); SODIUM 142 mmol/L (136-145); TCO2 28 mmol/L (25-35)
[2019-08-09] MEDS: LYRICA PO SCH ×3 (08:44→21:31)
[2019-08-09] MEDS: GLUCOPHAGE PO SCH ×2 (08:44→17:01)
[2019-08-09] MEDS: JANUVIA PO SCH ×2 (08:44→17:01)
[2019-08-09] MEDS: ASPIRIN EC PO SCH (08:44)
--- NOTE | 2019-08-09 11:08 | PROGRESS NOTE ---
DATE: 08/09/2019 SUBJECTIVE: The patient is doing better. No acute events overnight. OBJECTIVE: Vital Signs: Temperature 97.7 degrees, pulse 65, respiratory rate 18, blood pressure 149/65, oxygen saturation 94% on room air. HEENT: Head normocephalic. No trauma. PERRLA. Neck: Supple. No JVD. No masses. Central trachea. Chest: Clear to auscultation. No wheezing. No rales. Abdomen: Soft, nontender, nondistended. No hepatosplenomegaly. Extremities: She has a transmetatarsal amputation on the left side. She also has trace bilateral lower extremity edema. She has chronic redness at the level of the legs, pain at the level of the surgical area. Neurological: The patient is alert and oriented x3. No focal deficits. LABORATORY DATA: Sodium 142, potassium 4.5, chloride 103, bicarbonate 28, BUN 22, creatinine 0.8, glucose 109, calcium 8.3. ASSESSMENT AND PLAN: 1. Left diabetic foot ulcer, status post transmetatarsal amputation by Surgery Department, postoperative day #4. Continue with the same management. 2. History of chronic obstructive pulmonary disease, not in exacerbation. 3. Acute on chronic kidney disease, resolved. 4. Hypertension, stable. 5. Chronic back pain and peripheral neuropathy. Continue pain medication. Also, she has a pain pump at the level of the left lower abdomen. 6. Mild hyperkalemia, resolved. 7. Type 2 diabetes with hemoglobin A1c that is stable. Continue with the same management. Glucose level is controlled. Overall, this patient is doing better. From the Internal Medicine standpoint, this patient can be discharged at any time. cc: MD Kunal Mena MD
[2019-08-09] MEDS: ZOFRAN IV PRN (14:59)
--- NOTE | 2019-08-09 15:15 | GENERAL SURGERY PROGRESS NOTE ---
DATE: 08/09/2019 SUBJECTIVE: She is doing well. She is dressed in regular clothes. Minimal pain in her foot. Dressing clean. No fevers. No tachycardia. Blood pressure has been normal. ASSESSMENT AND PLAN: This is a 68-year-old female status post left transmetatarsal amputation. Wound seems to be healing well. Plan is to go home with home physical therapy tomorrow. We did discuss possibility today, but she wants to wait until tomorrow. Renal function is now normal. White count normalized two days ago. cc: MD Kunal Guajardo MD
[2019-08-09] MEDS: CRESTOR PO SCH (21:26)
[2019-08-09] MEDS: LASIX PO SCH (21:26)
[2019-08-10] MEDS: CLEOCIN PO SCH ×3 (01:32→15:16)
[2019-08-10] MEDS: NORCO-10 PO PRN ×3 (01:32→15:16)
[2019-08-10] MEDS: HUMULIN R SUBQ SCH ×2 (06:52→11:41)
[2019-08-10] MEDS: PRILOSEC PO SCH (06:56)
[2019-08-10] MEDS: DUONEB (A & A) INH PRN (08:07)
[2019-08-10] MEDS: GLUCOPHAGE PO SCH (08:34)
[2019-08-10] MEDS: JANUVIA PO SCH (08:34)
[2019-08-10] MEDS: LYRICA PO SCH ×2 (08:34→15:15)
[2019-08-10] MEDS: LASIX PO SCH (08:34)
[2019-08-10] MEDS: ASPIRIN EC PO SCH (08:34)
--- NOTE | 2019-08-10 11:11 | PROGRESS NOTE ---
DATE: 08/10/2019 SUBJECTIVE: The patient is doing better. No acute events overnight. She is going to be discharged today. OBJECTIVE: Vital Signs: Temperature 97.9 degrees, pulse 65, respiratory rate 16, blood pressure 110/54, oxygen saturation 94% on 2 L of nasal cannula. HEENT: Head normocephalic. No trauma. PERRLA. Neck: Supple. No JVD. No masses. Central trachea. Chest: Clear to auscultation. No wheezing. No rales. Abdomen: Soft, nontender, nondistended. No hepatosplenomegaly. Extremities: She has a transmetatarsal amputation on the left side. She also has trace bilateral lower extremity edema and chronic redness on her legs, pain at the level of the surgical area. Neurological: The patient is alert and oriented x3. No focal deficits. LABORATORY DATA: Glucose 123. Lab work from yesterday is stable. ASSESSMENT AND PLAN: 1. Left diabetic foot ulcer, status post transmetatarsal amputation by Surgery Department, postoperative day #5. She has been discharged home already. 2. History of chronic obstructive pulmonary disease, not in exacerbation. 3. Acute kidney injury, resolved. 4. Hypertension, stable. 5. Chronic back pain with peripheral neuropathy. She has a pain pump on her left lower abdomen, and also she has been taking oral treatment. 6. Mild hyperkalemia, resolved. 7. Type 2 diabetes with a hemoglobin A1c that has been stable. She will need to continue with the same treatment at home. She seems to be stable. This patient will be discharged today. She will [facility] on 08/18/2019 at 11 a.m[address] Also, Dr. Nix will evaluate this patient at that time. She has been discharged with her home medications, and also she has been discharged with some pain medication. She completed treatment with antibiotics during this hospitalization. cc: MD Kunal Mena MD
--- NOTE | 2019-08-10 11:16 | PROGRESS NOTE ---
DATE: 08/10/2019 SUBJECTIVE: The patient is doing well. She has some stinging in her left foot, but otherwise is feeling okay. She has been able to walk some, both with and without a walker. She is trying to walk on her heel. OBJECTIVE: Vital Signs: She is afebrile. Vital signs are stable. General: She is awake, alert, and oriented x3. No acute distress. Extremities: The left foot was examined with the bandage off. There was no erythema. There was no foul drainage. There was minimal serosanguineous drainage on the gauze. The incision is intact. ASSESSMENT AND PLAN: A 68-year-old female status post left transmetatarsal amputation. She is doing well. We will discharge her home today. She will get home physical therapy, and we will see her back in the clinic for a postoperative check in a week. cc: Kunal Nix MD
[2019-08-10 11:25] VITALS: BP 123/66
[2019-08-10] MEDS: ZOFRAN IV PRN (14:45)
--- NOTE | 2019-09-24 07:33 | DISCHARGE SUMMARY ---
ADMISSION DATE: 08/04/2019 DISCHARGE DATE: 08/10/2019 ADMITTING PHYSICIAN: Kunal Nix MD CONSULTANTS: Dr. Garcia. ADMITTING DIAGNOSES: 1. Diabetic foot ulcer on left foot with osteomyelitis of the left foot. 2. Type 2 diabetes. 3. Hypertension. 4. Chronic obstructive pulmonary disease. 5. Chronic venous insufficiency. DISCHARGE DIAGNOSES: 1. Diabetic foot ulcer on left foot with osteomyelitis of the left foot. 2. Type 2 diabetes. 3. Hypertension. 4. Chronic obstructive pulmonary disease. 5. Chronic venous insufficiency. 6. Acute kidney injury, which resolved. PROCEDURES: Left transmetatarsal amputation. HOSPITAL COURSE: The patient was admitted for planned left transmetatarsal amputation for failed outpatient treatment of diabetic foot ulcers and osteomyelitis. She underwent the operation on 08/05/2019 after initiating antibiotics. For full details, please see the dictated operative report. Postoperatively, she did quite well. Her pain was well controlled. She had no fevers. She had a mild increase in her creatinine, but made good urine, and this did stabilize prior to discharge. Physical Therapy was consulted and assisted with her postoperative immobilization. On 08/10/2019, she was able to ambulate with and without a walker. The incision was inspected and was intact with minimal drainage. She was discharged home with home physical therapy. Instructions were given including to follow up in my office in a week to walk on her heel. Diet is regular. She is to keep her bandage clean and dry. DISCHARGE MEDICATIONS: She will resume her Chantix, Prilosec, Lasix, Adipex, lisinopril, Janumet, Amaryl, Ecotrin, Crestor, Lyrica, and Benedict. cc: Kunal Nix MD
== END 2019-08-10 16:50 | disposition home health service (06) | DRG 617 ==
LOC: DIRADM 12:04 → SUATTDRO 12:04 → EDIPHOLD 14:23 → 4N 20:45
PROVIDERS: ADMIT Surgery; ATTEND Internal Medicine